=== PATIENT | female | born 1995 | race Caucasian/White ===

== ENCOUNTER → 2016-08-02 | Outpatient (REF) | payer SELFPAY ==
[2016-08-02 20:04] LABS: FERRITIN 18 NG/ML (8-252); PERCENT SATURATION 30.4 % (13.2-37.4); TOTAL IRON BINDING CAPACITY 473 UG/DL (250-450)
[2016-08-02 20:14] LABS: REASON FOR REVIEW COMPREHENSIVE REVIEW
[2016-08-05 00:08] LABS: SJOGREN'S ANTI SS-A >8.0 AI (0.0-0.9); SJOGREN'S ANTI SS-B 0.5 AI (0.0-0.9)
== END ==
LOC: M LAB REF 17:33
PROVIDERS: ATTEND Internal Medicine Medical Oncology
DX: D61.818 Other pancytopenia (principal)

== ENCOUNTER 2016-08-14 11:20 | Emergency (ER) | payer SELFPAY ==
[~2016-08-14] VITALS: Ht 160 cm; Wt 53.4 kg
[2016-08-14] MEDS ORDERED: IRON65TA PO (11:30)
[2016-08-14] MEDS ORDERED: NS 1,000 ML IV ONE (12:00)
[2016-08-14 12:33] LABS: ALBUMIN/GLOBULIN RATIO 0.87 (1.00-1.93); ALKALINE PHOSPHATASE 58 U/L (45-117); ALT/SGPT 37 U/L (12-78); ANION GAP 8 MEQ/L (8-16); AST/SGOT 29 U/L (15-37); BILIRUBIN,DIRECT 0.2 MG/DL (0.0-0.2); BLOOD UREA NITROGEN 16 MG/DL (7-18); CALCIUM LEVEL 8.9 MG/DL (8.5-10.1); CARBON DIOXIDE LEVEL 26 MEQ/L (21-32); CHLORIDE LEVEL 105 MEQ/L (98-107); CREATININE FOR GFR 0.88 MG/DL (0.55-1.02); GLOMERULAR FILTRATION RATE > 60.0 (>60); GLUCOSE, FASTING 81 MG/DL (70-105); POTASSIUM SERUM 3.6 MEQ/L (3.5-5.1); SODIUM LEVEL 139 MEQ/L (136-145); TOTAL PROTEIN 8.6 GM/DL (6.4-8.2)
[2016-08-14] MEDS ORDERED: ISOVUE-370 76% 100ML VIAL (Q9967) As Ordered ONE (12:39)
[2016-08-14 12:57] LABS: BASO % 0.2 % (0.0-1.0); EOS # 0.1 K/mm3 (0.0-0.50); EOS % 1.5 % (0.0-3.0); LARGE UNSTAINED CELL # 0.2 K/mm3 (0.0-0.4); LARGE UNSTAINED CELL % 3.1 % (0.0-4.0); LYMPH # 1.6 K/mm3 (1.5-6.5); LYMPH % 28.6 % (24.0-44.0); MEAN CORPUSCULAR HEMOGLOBIN 24.3 pg (27.0-33.0); MEAN CORPUSCULAR HGB CONC 31.2 g/dl (32.0-36.5); MEAN CORPUSCULAR VOLUME 77.9 fl (80.0-96.0); MONO # 0.2 K/mm3 (0.0-0.8); MONO % 3.2 % (0.0-5.0); NEUTROPHILS # 3.2 K/mm3 (1.8-7.7); NEUTROPHILS % 63.4 % (36.0-66.0); RED CELL DISTRIBUTION WIDTH 26.3 % (11.5-14.5); WHITE BLOOD COUNT 5.1 K/mm3 (4.0-10.0)
[2016-08-14 13:09] LABS: ADD MORPHOLOGY? YES
[2016-08-14 13:14] LABS: PLATELET COUNT, AUTOMATED 31 k/mm3 (150-450)
[2016-08-14 13:16] LABS: ANISOCYTOSIS 3+; HYPOCHROMASIA 2+; MICROCYTOSIS 2+; OVALOCYTES 2+
[2016-08-14 13:17] LABS: SCHISTOCYTES 1+
--- NOTE | 2016-08-14 14:03 | REP ---
CT ANGIOGRAM OF THE CHEST: 08/14/2016 CLINICAL HISTORY: Hemoptysis. Evaluate for pulmonary emboli. TECHNIQUE: Bolus of 75 mL of Isovue 370 with scanning through the chest using our pulmonary angiogram protocol with both coronal and sagittal thick slab MIP reformats. Bone windows are also reviewed. FINDINGS: The lung park show fairly extensive bilateral lower lobe patchy alveolar interstitial infiltrates, some with air bronchograms. There is also some inferior lingular segment and patchy right middle lobe interstitial infiltrates. I do not see pleural effusion. Mid and upper lung zones show no parenchymal lesion or atelectasis/infiltrate. No effusion, calcified pleural plaque. No thorax or pneumomediastinum. The heart is not enlarged. There is no pericardial thickening or effusion. The aorta is without aneurysm or dissection. The main, right and left pulmonary arteries in the mediastinum are intact and without filling defects. Lobar arteries bilaterally are also intact. Segmental arteries show opacification without filling defect or vessel cutoff. Visible subsegmental arteries are also without filling defect or vessel cutoff. I see no pleural effusion. There is no supraclavicular mass identified. However, there are multiple bilateral nodes in the axilla up to 13 mm diameter on the right and left side. No mediastinal or hilar adenopathy. The upper abdomen showed that the upper poles of kidneys, adrenal glands, visible portion of spleen and liver included were all unremarkable. Visualized portion of pancreas intact. Gallbladder not visualized in the field of view. The sternum, manubrium, medial clavicles, humeral heads, scapula, ribs and the spine are all grossly intact. IMPRESSION: 1. Bilateral patchy and confluent alveolar and interstitial infiltrates in the bilateral lower lobes and minimally in the inferior lingular segment right middle lobe. This could be an infectious or inflammatory, parenchymal hemorrhages could also give this appearance. There is bilateral axillary adenopathy without mediastinal adenopathy. Axillary nodes are up to 13 mm in short axis. No definite supraclavicular adenopathy. 2. There is no CT evidence for pulmonary thromboembolism, aortic aneurysm or dissection nor any pathologic sized mediastinal/hilar adenopathy. Upper abdomen grossly intact. Signed by Miquel Guzmán MD 08/14/2016 08:00 P
[2016-08-14 16:22] VITALS: BP 104/69
== END 2016-08-14 16:28 | disposition home or self-care (01) ==
LOC: M ED 13:30
DX: D59.9 Acquired hemolytic anemia, unspecified (principal); R06.02 Shortness of breath; R04.2 Hemoptysis; Z79.52 Long term (current) use of systemic steroids; Z79.899 Other long term (current) drug therapy
CPT/HCPCS: 71275; 80048; 80076; 85025; 96360; 96361; 99284; Q9967

== ENCOUNTER 2016-08-19 17:49 | Inpatient (IN) | payer SELFPAY ==
[~2016-08-19] VITALS: Ht 160 cm; Wt 52.6 kg
[~2016-08-19 17:49] MED LIST: IRON65TA PO
[2016-08-19 19:50] LABS: INR 1.07
[2016-08-19 19:53] LABS: DIFF SLIDE NUMBER 275; MEAN CORPUSCULAR HEMOGLOBIN 24.2 pg (27.0-33.0); MEAN CORPUSCULAR HGB CONC 30.9 g/dl (32.0-36.5); MEAN CORPUSCULAR VOLUME 78.5 fl (80.0-96.0); RED CELL DISTRIBUTION WIDTH 25.4 % (11.5-14.5); RETICULOCYTE ABSOLUTE ADVIA212 183 x10(9)/L (17-77); WHITE BLOOD COUNT 6.2 K/mm3 (4.0-10.0)
[2016-08-19 20:04] LABS: ANION GAP 6 MEQ/L (8-16); BLOOD UREA NITROGEN 17 MG/DL (7-18); CALCIUM LEVEL 8.6 MG/DL (8.5-10.1); CARBON DIOXIDE LEVEL 24 MEQ/L (21-32); CHLORIDE LEVEL 107 MEQ/L (98-107); CREATININE FOR GFR 0.85 MG/DL (0.55-1.02); GLOMERULAR FILTRATION RATE > 60.0 (>60); GLUCOSE, FASTING 92 MG/DL (70-105); POTASSIUM SERUM 3.6 MEQ/L (3.5-5.1); SODIUM LEVEL 137 MEQ/L (136-145)
[2016-08-19 20:24] LABS: ADD MORPHOLOGY? YES; NEUTROPHILS % 58.8 % (36.0-66.0); PLATELET COUNT, AUTOMATED 42 k/mm3 (150-450)
[2016-08-19 20:25] LABS: BASO % 0.3 % (0.0-1.0); EOS # 0.1 K/mm3 (0.0-0.50); EOS % 1.8 % (0.0-3.0); LARGE UNSTAINED CELL # 0.2 K/mm3 (0.0-0.4); LARGE UNSTAINED CELL % 2.9 % (0.0-4.0); LYMPH # 2.1 K/mm3 (1.5-6.5); LYMPH % 33.5 % (24.0-44.0); MONO # 0.2 K/mm3 (0.0-0.8); MONO % 2.7 % (0.0-5.0); NEUTROPHILS # 3.6 K/mm3 (1.8-7.7)
[2016-08-19 20:27] LABS: ANISOCYTOSIS 2+; HYPOCHROMASIA 1+; MICROCYTOSIS 2+; OVALOCYTES 2+; POIKILOCYTOSIS 2+; POLYCHROMASIA 1+; SCHISTOCYTES 2+
[2016-08-19 20:28] LABS: HELMET CELLS 1+; HOWELL-JOLLY BODIES 1+
[2016-08-19] MEDS ORDERED: FERR1TAB8 PO (21:00)
[2016-08-19 23:10] VITALS: BP 109/71
--- NOTE | 2016-08-19 23:48 | HPEPDOC ---
General Date of Admission Aug 19, 2016 at 21:55 Chief Complaint The patient is a 21-year-old female admitted with a reason for visit of Hemolytic Anemia;Hemoptysis. Source: Patient Exam Limitations: No limitations Severity: Moderate History of Present Illness Ms. Saenz is a pleasant 21 y/o female with no past medical history who presents today with CC of coughing up blood, the pt states that this morning at 4:30 am she woke up and began coughing up blood, she stated she had 4 episodes of this and came to the ED, last episode of hemoptysis per pt was 8 pm in our hospital ED. The pt was seen in our ER on 08/14/16 for similar complaint and transferred to [facility] when it was found she had parenchymal hemorrhage and was thrombocytopenic. 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 Interestingly, our serology shows positive findings for SS-A, anti-DS DNA and JACOB. The pt states that last year she gave in Mar. and in July she began having heavy menstrual cycles which she thought was a result giving a few months prior; she typically since that time has been saturating upwards of 15-20 pads a day when she is on her cycle and she also has intermittent spotting between cycles. The pt states that in Mar of this year she noticed "red spots"- (petechiae)- on both of her feet and a couple months later started having daily nose bleeds. The pt denies bleeding gums but admits to easier generalized body bruising for the past few months. When asked she also admits to having "lumps" in her neck and armpits and groin region of which she was told at [facility] were lymph nodes. The pt underwent BM bx. at [facility] but as of today at 4 pm the results were not in. She has seen Dr. Gu of Hem/Onc. last week and has a f/u appt with him in the next few days. Records from [facility] were requested and subsequently reviewed and are available in the pts chart and it appears they were thinking ITP or a myeloproliferate d/o. Currently the pt states that she is not experiencing any vaginal bleeding and states that aside from the recent 4 episodes of hemoptysis she is not SOB. She has no other complaints. Home Medications Scheduled Ferrous Sulfate (Ferrous Sulfate) 325 Mg Tab, 325 MG PO TID, (Reported) Allergies Coded Allergies: No Known Allergies (Unverified , 08/14/16) Past Medical History Medical History thrombocytopenia Family History large family hx of cancer, including mother who had colon cancer and uterine cancer, aunt had low platelet count for >20 yrs but pt states "they didn't do anything for it". 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 Dyspnea, Edema, Lt Headedness Gastrointestinal: Denies: Nausea, Vomiting, Abdominal Pain, Diarrhea, Constipation Genitourinary: Denies: Dysuria, Frequency Hematologic: Reports: Bruising Neurological: Denies: Weakness Psych: Reports: Mood Normal Physical Examination General Exam: Positive: Alert, Cooperative, No Acute Distress Eye Exam: Positive: PERRLA, Conjunctiva & lids normal, EOMI, Negative: Sclera icteric, Ptosis ENT Exam: Positive: Atraumatic, Mucous membr. moist/pink, Nares Patent, Negative: Pharyngeal Edema Neck Exam: Positive: Supple, Negative: thyromegaly Chest Exam: Positive: Clear to auscultation, Normal air movement, Negative: Rales, Rhonchi, Wheezing, Diminished Heart Exam: Positive: Rate Normal, Normal S1, Normal S2 Telemetry: Positive: No significant arrhythmia Abdomen Exam: Positive: Normal bowel sounds, Soft, Tenderness, Negative: Hepatospenomegaly, Mass Extremity Exam: Negative: Clubbing, Cyanosis, Edema Psych Exam: Positive: Mental status NL Vital Signs Vital Signs Date Time Temp Pulse Resp B/P (MAP) Pulse Ox O2 Delivery O2 Flow Rate FiO2 08/19/16 23:10 99.0 85 16 109/71 (84) 98 Room Air Laboratory Data Labs 24H Laboratory Tests 2 08/19/16 19:33: White Blood Count 6.2, Red Blood Count 3.77L, Hemoglobin 9.1L, Hematocrit 29.6L , Mean Corpuscular Volume 78.5L, Mean Corpuscular Hemoglobin 24.2L, Mean Corpuscular Hemoglobin Concent 30.9L, Red Cell Distribution Width 25.4H, Platelet Count 42L, Neutrophils (%) (Auto) 58.8, Lymphocytes (%) (Auto) 33.5, Monocytes (%) (Auto) 2.7, Eosinophils (%) (Auto) 1.8, Basophils (%) (Auto) 0.3, Neutrophils # (Auto) 3.6, Lymphocytes # (Auto) 2.1, Monocytes # (Auto) 0.2, Eosinophils # (Auto) 0.1, Basophils # (Auto) 0.0, Large Unclassified Cells % 2.9 , Large Unclassified Cells # 0.2, Platelet Estimate MARKED DECREASE, Polychromasia 1+, Hypochromasia 1+, Poikilocytosis 2+, Basophilic Stippling 1+, Anisocytosis 2+, Microcytosis 2+, Ovalocytes 2+, Helmet Cells 1+, Hester-[place] Bodies 1+, Schistocytes 2+, Absolute Reticulocyte Count 183H, Percent Reticulocyte Count 4.80H, Reticulocyte Hgb Content (CHr) 30.0, Prothrombin Time 14.0, Prothromb Time International Ratio 1.07, Activated Partial Thromboplast Time 27.8, Anion Gap 6L, Glomerular Filtration Rate > 60.0, Blood Urea Nitrogen 17, Creatinine 0.85, Sodium Level 137, Potassium Level 3.6, Chloride Level 107, Carbon Dioxide Level 24, Calcium Level 8.6, Lactate Dehydrogenase 199 CBC/BMP Laboratory Tests 08/19/16 19:33 Red Blood Count 3.77 L, Mean Corpuscular Volume 78.5 L, Mean Corpuscular Hemoglobin 24.2 L, Mean Corpuscular Hemoglobin Concent 30.9 L, Red Cell Distribution Width 25.4 H, Neutrophils (%) (Auto) 58.8, Lymphocytes (%) (Auto) 33.5, Monocytes (%) (Auto) 2.7, Eosinophils (%) (Auto) 1.8, Basophils (%) (Auto ) 0.3, Neutrophils # (Auto) 3.6, Lymphocytes # (Auto) 2.1, Monocytes # (Auto) 0.2, Eosinophils # (Auto) 0.1, Basophils # (Auto) 0.0, Calcium Level 8.6 Problems (1) Hemoptysis Status: Acute Response to Treatment: Stable Problem Text: Dr. Gu was consulted by [employer] architect hospitalist, will see pt in AM. H/H 9.1/29.6 essentially unchanged from 08-14-16, plt 42. LDH neg-do not think this is hemolytic-haptoglobin on [facility] paperwork minimally depressed at 24. p. smear- absolute retic. and percent retic. 183 and 4.80 respectively Iron studies 08-02-16 outpt showed normal iron with elevation of TIBC, transferrin and ferritin normal- do not suspect iron deficiency, pt has however been maintained on iron for a few weeks Liver studies normal, HIV neg. Pt. remains stable with plt count 42-will not transfuse platelets at this time. She has not had an episode of hemoptysis since around 8 pm in the hospital & states that she feels good with no SOB. Records from [facility] were reviewed, appears ITP vs myeloproliferative d/o so far but there are still numerous immunological and serological tests and bone marrow biopsy that are still pending. Our serology here shows findings that could suggest Lupus- positive DS-DNA, SS-A and JACOB. CXR pending will repeat basic blood work in AM pt tolerating PO intake (2) DVT prophylaxis Status: Acute Response to Treatment: Stable Problem Text: SCD TEDS Plan / VTE VTE Prophylaxis Ordered?: Yes GME ATTESTATION GME ATTESTATION My preceptor for this patient encounter was physically present in the building during the encounter and was fully available. As needed, all aspects of the patient interview, examination, medical decision making process, and medical care plan development were reviewed and approved by the preceptor. Preceptor is aware and concurs with the plan as stated in the body of this note and will attest to such by his/her cosignature. ALEKSANDER MATAMOROS DO Aug 19, 2016 23:48
[2016-08-20 04:08] VITALS: BP 93/60
[2016-08-20 05:46] LABS: BASO % 0.2 % (0.0-1.0); EOS # 0.1 K/mm3 (0.0-0.50); EOS % 3.2 % (0.0-3.0); LARGE UNSTAINED CELL # 0.2 K/mm3 (0.0-0.4); LARGE UNSTAINED CELL % 3.6 % (0.0-4.0); LYMPH # 1.4 K/mm3 (1.5-6.5); LYMPH % 28.3 % (24.0-44.0); MEAN CORPUSCULAR HEMOGLOBIN 24.7 pg (27.0-33.0); MEAN CORPUSCULAR HGB CONC 31.3 g/dl (32.0-36.5); MEAN CORPUSCULAR VOLUME 79.1 fl (80.0-96.0); MONO # 0.1 K/mm3 (0.0-0.8); MONO % 3.2 % (0.0-5.0); NEUTROPHILS # 2.8 K/mm3 (1.8-7.7); NEUTROPHILS % 61.5 % (36.0-66.0); RED CELL DISTRIBUTION WIDTH 25.3 % (11.5-14.5); WHITE BLOOD COUNT 4.5 K/mm3 (4.0-10.0)
[2016-08-20 05:47] LABS: PLATELET COUNT, AUTOMATED 32 k/mm3 (150-450)
[2016-08-20 05:48] LABS: ADD MORPHOLOGY? YES
[2016-08-20 07:09] LABS: ANION GAP 8 MEQ/L (8-16); BLOOD UREA NITROGEN 18 MG/DL (7-18); CALCIUM LEVEL 8.6 MG/DL (8.5-10.1); CARBON DIOXIDE LEVEL 24 MEQ/L (21-32); CHLORIDE LEVEL 109 MEQ/L (98-107); CREATININE FOR GFR 0.77 MG/DL (0.55-1.02); GLOMERULAR FILTRATION RATE > 60.0 (>60); GLUCOSE, FASTING 84 MG/DL (70-105); POTASSIUM SERUM 3.6 MEQ/L (3.5-5.1); SODIUM LEVEL 141 MEQ/L (136-145)
[2016-08-20 07:10] VITALS: BP 92/60
[2016-08-20 07:10] LABS: HOWELL-JOLLY BODIES 1+
[2016-08-20 07:11] LABS: ANISOCYTOSIS 2+; HYPOCHROMASIA 1+; MICROCYTOSIS 2+; OVALOCYTES 1+
[2016-08-20 07:12] LABS: POIKILOCYTOSIS 1+; TEAR DROP CELLS 1+
[2016-08-20] MEDS: FERROUS SULFATE 325MG TAB PO SCH ×3 (08:13→20:59)
--- NOTE | 2016-08-20 08:25 | REP ---
Clinical: Hemoptysis . Comparison: None . Findings: The mediastinum and cardiac silhouette are stable and within normal limits for portable technique. The lung park are clear without acute consolidation, effusion, or pneumothorax. Skeletal structures are intact. Impression: No acute cardiopulmonary process appreciated. Signed by Tae Kennedy MD 08/20/2016 08:17 A
[2016-08-20 11:30] VITALS: BP 95/63
[2016-08-20 11:51] LABS: MEAN CORPUSCULAR HEMOGLOBIN 24.7 pg (27.0-33.0); MEAN CORPUSCULAR HGB CONC 31.3 g/dl (32.0-36.5); RED CELL DISTRIBUTION WIDTH 25.3 % (11.5-14.5); WHITE BLOOD COUNT 4.8 K/mm3 (4.0-10.0)
[2016-08-20] MEDS ORDERED: DEXA4TA PO (12:44)
--- NOTE | 2016-08-20 14:59 | CR ---
DATE OF CONSULTATION: 08/20/2016 REFERRING PHYSICIAN: Ole Haro MD REASON FOR CONSULTATION: Cytopenias with marked microcytic anemia and thrombocytopenia and lymphadenopathy. HISTORY OF PRESENT ILLNESS: Otilia Saenz is a 21-year-old female who initially was seen for cytopenia, including thrombocytopenia with platelet counts of 35, 000 and microcytic anemia. Her initial workup included peripheral smear, which was done on 08/03/2016 revealing microcytic anemia with dacryocytes. She was noted to have scant hemoptysis and she was transferred to [facility] for further evaluation. At [facility], she underwent extensive workup including a bone marrow biopsy on 08/14/2016, which revealed normocellular to mildly hypercellular marrow with increased megakaryocytes and reticulin fibrosis 1 out of 3, suspicious for early myeloproliferative/myelofibrosis, but also possibly autoimmune or otherwise reactive. No evidence of lymphoma, but decreased CD4/ CD8 ratio concerning for immune abnormality. Cytogenics revealed 46, XX. Prior flow cytometry also was normal. JAK2 V617 mutation was negative. LDH was normal at 197. CT scan of the neck noted diffuse lymphadenopathy extending from the skull base to the supraclavicular regions, the largest being the right jugulodigastric node measuring 2.[address] scan of the abdomen and pelvis noted bilateral external iliac lymph nodes measuring up to 1 cm and subcentimeter prominent retroperitoneal and bilateral inguinal lymph nodes. The spleen was normal in size. A workup for connective tissue disease was also pursued revealing a positive JACOB speckled pattern with positive anti SSA and anti SSB. Sed rate was high at 44. DIC was ruled out with normal fibrinogen. D-Dimer was normal at 0.41. Biopsy of the prominent lymph nodes was not pursued while she was [facility]. This was supposed to be arranged as an outpatient. Unfortunately she had another repeat episode of hemoptysis and was readmitted to the hospital yesterday on 08/19/2016. Hematology/oncology was consulted for further evaluation. At her bedside, she denies any nausea or vomiting. She denies any fevers, night sweats or weight loss. She endorses fatigue. No other bleeding. No hematuria. No epistaxis. PAST MEDICAL HISTORY: Unremarkable. PAST SURGICAL HISTORY: None. She is 1, para 1. SOCIAL HISTORY: No tobacco or alcohol use. She is . 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 FAMILY HISTORY: Mother had colon cancer and uterine cancer. PHYSICAL EXAMINATION: VITAL SIGNS: Temperature 96.9, blood pressure is 96/63, heart rate is 75. HEENT: No pallor. Anicteric sclerae. Moist mucous membranes. Oropharynx is clear. HEART: Regular rate and rhythm. Normal S1 and S2. LUNGS: Clear bilaterally. ABDOMEN: Soft. No hepatosplenomegaly or masses. EXTREMITIES: No edema. LYMPHATICS: Prominent bilateral cervical lymphadenopathy with a 3 cm lymph node on the right cervical region. Also prominent lymphadenopathy in bilateral inguinal nodes, more prominent in the right inguinal lymph nodes. Bilateral axillary lymphadenopathy as well. Labs and studies as detailed above. A CBC from today notes a platelet count of 32,000, hemoglobin of 8.3. DISCUSSION/PLAN: 21-year-old female with multiple lymphadenopathy, thrombocytopenia, microcytic anemia. Workup has excluded essentially a microangiopathic hemolytic process; however, given her lymphadenopathy there is always concern for connective tissue disease versus a lymphoma. I could be an underlying ITP with any of these two diagnoses. Connective tissue disease in itself can also be associated with cytopenias. At this time, it is unclear what the exact diagnosis is, however, obtaining an excisional biopsy of one of the lymph nodes will help in further characterizing her pathology. Given that steroids could alter her lymphoma diagnosis, I have opted not to start her steroids. Rather I recommend that she be transfused platelets to keep her platelet count above 50,000 given the fact that she did have hemoptysis. Next step would be to arrange for excisional biopsy of the lymph nodes and based on the diagnosis, further treatment and workup will be pursued. This was discussed with the patient today at the bedside and she expresses understanding. I also expressed to her that if she continues to have hemoptysis by the weekend she needs to return to the emergency department for further evaluation and stabilization. DON
--- NOTE | 2016-08-20 15:54 | IPNPDOC ---
Subjective Date Seen The patient was seen on 08/20/16. Subjective Chief Complaint/HPI The patient is a 21-year-old female admitted with a reason for visit of Hemolytic Anemia;Hemoptysis. General: Denies: Chills, Night Sweats Constitutional: Denies: Chills, Fever Eyes: Denies: Pain, Vision change ENT: Denies: Head Aches, Ear Pain Skin: Denies: Rash, Lesions Pulmonary: Denies: Dyspnea Cardiovascular: Denies: Chest Pain, Palpitations, Orthopnea Gastrointestinal: Denies: Nausea, Vomiting, Abdominal Pain Genitourinary: Denies: Dysuria, Frequency Hematologic: Reports: Bruising, Bleeding Excessively (hemoptysis) Objective Physical Examination General Exam: Positive: Alert, Cooperative, No Acute Distress Eye Exam: Negative: Sclera icteric, Ptosis ENT Exam: Positive: Atraumatic, Mucous membr. moist/pink, Nares Patent, Negative: Pharyngeal Edema Neck Exam: Negative: JVD, thyromegaly Chest Exam: Positive: Clear to auscultation, Normal air movement, Negative: Rales, Rhonchi, Wheezing, Diminished Heart Exam: Positive: Rate Normal, Normal S1, Normal S2 Telemetry: Positive: No significant arrhythmia Abdomen Exam: Positive: Normal bowel sounds, Soft, Tenderness, Negative: Hepatospenomegaly, Mass Extremity Exam: Negative: Clubbing, Cyanosis, Edema Neuro Exam: Positive: Strength at 5/5 X4 ext Psych Exam: Positive: Mental status NL, Oriented x 3 Assessment /Plan Plan/VTE VTE Prophylaxis Ordered?: Yes Plan Microcytic anemia, thrombocytopenia with associated lymphadenopathy, pulmonary parenchymal hemorrhaging The patient has had an extensive work up at [facility], which i reviewed in her chart It is believed that the patient has ITP, however multiple studies are still pending at [facility], including a bone marrow biopsy done there. However, at this time there is concern for underlying connective tissue disease vs lymphoma that may be attributing to the ITP--the patient will need an excisional lymph node biopsy to establish a clear diagnosis of possible underlying lymphoma. I did discuss these findings with the patient's wet room supervisor, Dr. Gu, who will arrange for the biopsy as an outpatient. At this time we will transfuse the patient platelets to maintain a platelet count of >50,000 (Currently 32K). Will withhold starting the patient on any steroids at this time as they may alter the results of the biopsy. Will defer to Dr. Gu for outpatient administration of this once biopsy is done. The patient would also benefit from a Rheumatological evaluation as an outpatient for further evaluation of underlying connective tissue disease The patient did have an episode of less than a teaspoon amount of hemoptysis, however her hgb has remained relatively stable (8.3-9.1) We will continue to monitor the patient's Hgb and Platelet count and transfuse as indicated. Hematology input appreciated DVT Prophylaxis SCDs/TEDs VS, I&O, 24H, Fishbone Vital Signs/I&O Vital Signs Date Time Temp Pulse Resp B/P (MAP) Pulse Ox O2 Delivery O2 Flow Rate FiO2 08/20/16 11:30 96.9 75 18 95/63 (74) 99 Room Air Laboratory Data 24H LABS Laboratory Tests 2 08/19/16 19:33: White Blood Count 6.2, Red Blood Count 3.77L, Hemoglobin 9.1L, Hematocrit 29.6L , Mean Corpuscular Volume 78.5L, Mean Corpuscular Hemoglobin 24.2L, Mean Corpuscular Hemoglobin Concent 30.9L, Red Cell Distribution Width 25.4H, Platelet Count 42L, Neutrophils (%) (Auto) 58.8, Lymphocytes (%) (Auto) 33.5, Monocytes (%) (Auto) 2.7, Eosinophils (%) (Auto) 1.8, Basophils (%) (Auto) 0.3, Neutrophils # (Auto) 3.6, Lymphocytes # (Auto) 2.1, Monocytes # (Auto) 0.2, Eosinophils # (Auto) 0.1, Basophils # (Auto) 0.0, Large Unclassified Cells % 2.9 , Large Unclassified Cells # 0.2, Platelet Estimate MARKED DECREASE, Polychromasia 1+, Hypochromasia 1+, Poikilocytosis 2+, Basophilic Stippling 1+, Anisocytosis 2+, Microcytosis 2+, Ovalocytes 2+, Helmet Cells 1+, Hester-[place] Bodies 1+, Schistocytes 2+, Absolute Reticulocyte Count 183H, Percent Reticulocyte Count 4.80H, Reticulocyte Hgb Content (CHr) 30.0, Prothrombin Time 14.0, Prothromb Time International Ratio 1.07, Activated Partial Thromboplast Time 27.8, Anion Gap 6L, Glomerular Filtration Rate > 60.0, Blood Urea Nitrogen 17, Creatinine 0.85, Sodium Level 137, Potassium Level 3.6, Chloride Level 107, Carbon Dioxide Level 24, Calcium Level 8.6, Lactate Dehydrogenase 199 08/20/16 05:02: White Blood Count 4.5, Red Blood Count 3.23L, Hemoglobin 8.0L, Hematocrit 25.5L , Mean Corpuscular Volume 79.1L, Mean Corpuscular Hemoglobin 24.7L, Mean Corpuscular Hemoglobin Concent 31.3L, Red Cell Distribution Width 25.3H, Platelet Count 32#L, Neutrophils (%) (Auto) 61.5, Lymphocytes (%) (Auto) 28.3, Monocytes (%) (Auto) 3.2, Eosinophils (%) (Auto) 3.2H, Basophils (%) (Auto) 0.2 , Neutrophils # (Auto) 2.8, Lymphocytes # (Auto) 1.4L, Monocytes # (Auto) 0.1, Eosinophils # (Auto) 0.1, Basophils # (Auto) 0.0, Large Unclassified Cells % 3.6 , Large Unclassified Cells # 0.2, Platelet Estimate MARKED DECREASE, Hypochromasia 1+, Poikilocytosis 1+, Anisocytosis 2+, Microcytosis 2+, Ovalocytes 1+, Hester-[place] Bodies 1+, Anion Gap 8, Glomerular Filtration Rate > 60.0, Blood Urea Nitrogen 18, Creatinine 0.77, Sodium Level 141, Potassium Level 3.6, Chloride Level 109H, Carbon Dioxide Level 24, Calcium Level 8.6, Tear Drop Cells 1+ CBC/BMP Laboratory Tests 08/19/16 19:33 Red Blood Count 3.77 L, Mean Corpuscular Volume 78.5 L, Mean Corpuscular Hemoglobin 24.2 L, Mean Corpuscular Hemoglobin Concent 30.9 L, Red Cell Distribution Width 25.4 H, Neutrophils (%) (Auto) 58.8, Lymphocytes (%) (Auto) 33.5, Monocytes (%) (Auto) 2.7, Eosinophils (%) (Auto) 1.8, Basophils (%) (Auto ) 0.3, Neutrophils # (Auto) 3.6, Lymphocytes # (Auto) 2.1, Monocytes # (Auto) 0.2, Eosinophils # (Auto) 0.1, Basophils # (Auto) 0.0, Calcium Level 8.6 08/20/16 05:02 Red Blood Count 3.23 L, Mean Corpuscular Volume 79.1 L, Mean Corpuscular Hemoglobin 24.7 L, Mean Corpuscular Hemoglobin Concent 31.3 L, Red Cell Distribution Width 25.3 H, Neutrophils (%) (Auto) 61.5, Lymphocytes (%) (Auto) 28.3, Monocytes (%) (Auto) 3.2, Eosinophils (%) (Auto) 3.2 H, Basophils (%) ( Auto) 0.2, Neutrophils # (Auto) 2.8, Lymphocytes # (Auto) 1.4 L, Monocytes # ( Auto) 0.1, Eosinophils # (Auto) 0.1, Basophils # (Auto) 0.0, Calcium Level 8.6 08/20/16 11:25 Red Blood Count 3.37 L, Mean Corpuscular Volume 79.0 L, Mean Corpuscular Hemoglobin 24.7 L, Mean Corpuscular Hemoglobin Concent 31.3 L, Red Cell Distribution Width 25.[address] MD Aug 20, 2016 15:54
[2016-08-20 16:00] VITALS: BP 105/68
[2016-08-20 20:00] VITALS: BP 107/73
[2016-08-20 21:50] LABS: MEAN CORPUSCULAR HEMOGLOBIN 25.7 pg (27.0-33.0); MEAN CORPUSCULAR HGB CONC 32.5 g/dl (32.0-36.5); MEAN CORPUSCULAR VOLUME 78.9 fl (80.0-96.0); RED CELL DISTRIBUTION WIDTH 25.6 % (11.5-14.5); WHITE BLOOD COUNT 6.9 K/mm3 (4.0-10.0)
--- NOTE | 2016-08-21 12:05 | DS.PDOC ---
Discharge Summary General Date of Admission Aug 19, 2016 at 21:55 Date of Discharge 08/20/16 Specialist/Consultants Involve: TONJA CASTELLANOS MD Discharge Summary PROCEDURES PERFORMED DURING STAY: None. ADMITTING DIAGNOSES: 1. . Thrombocytopenia, microcytic anemia possibly 2/2 ITP DISCHARGE DIAGNOSES: 1. . Thrombocytopenia, microcytic anemia possibly 2/2 ITP COMPLICATIONS/CHIEF COMPLAINT: Hemolytic Anemia;Hemoptysis. HISTORY OF PRESENT ILLNESS: . 21-year-old female with a past medical history significant for thrombocytopenia and microcytic anemia who initially presented to the [facility] ER on 08/14 with complaints of hemoptysis and was found to have thrombocytopenia with a platelet count of 31,000. A CTA of the chest was done and revealed bilateral patchy and confluent alveolar and interstitial infiltrates suggestive of possible parenchymal hemorrhages. The patient was subsequently transferred to [facility] and underwent an extensive workup including a bone marrow biopsy on 08/14 for the aforementioned thrombocytopenia, microcytic anemia. Her blood work was notable for a positive JACOB speckled pattern with positive anti SSA and anti SSB. DIC was ruled out with normal fibrinogen. D-Dimer was normal. However, lymph node biopsy was not done. She was diagnosed with having ITP. The patient presented once again to the [facility] ER on 08/19 after being D/C'd from [facility] on 08/17 with complaints of 3 episodes of hemoptysis. She came to the ER for further evaluation and management. She was found to have a platelet count of 32K. During hospitalization, oncology was consulted and the patient was transfused a unit of platelets to get her platelet count above 50,000. The patient did not have any further episodes of bleeding or hemoptysis during her stay here. She has been advised to follow up with Oncology as an outpatient to have an excisional lymph node biopsy done to r/o underlying lymphoma. We were considering giving the patient a 4 day dose trial of dexamethasone for presumptive ITP, however oncology would first like to obtain an excisional lymph node biopsy prior to administering any immunosuppressant therapy. I have also advised the patient to follow up with Rheumatology to further investigate the aforementioned lab abnormalities for lupus. Ideally I would like to keep the patient for an additional night to monitor for any further bleeding, drop in hgb. However, the patient is eager to return home to her young children, and states that she needs to be discharged as soon as possible after her platelet transfusion. I have advised the patient to carefully monitor herself for any hemoptysis, heavy menstrual related bleeding and for any signs of anemia such as shortness of breath, chest pain, palpitations, lightheadedness/dizziness. I' ve asked the patient to follow-up with her primary care physician and oncologist within 1 week. In addition, she should return to the ER if her symptoms return, persist, or worsen. DISCHARGE MEDICATIONS: Please see below. ALLERGIES: Please see below. PHYSICAL EXAMINATION ON DISCHARGE: VITAL SIGNS: Please see below. General Exam: Positive: Alert, Cooperative, No Acute Distress Eye Exam: Negative: Sclera icteric, Ptosis ENT Exam: Positive: Atraumatic, Mucous membr. moist/pink, Nares Patent, Negative: Pharyngeal Edema Neck Exam: Negative: JVD, thyromegaly Chest Exam: Positive: Clear to auscultation, Normal air movement, Negative: Rales, Rhonchi, Wheezing, Diminished Heart Exam: Positive: Rate Normal, Normal S1, Normal S2 Telemetry: Positive: No significant arrhythmia Abdomen Exam: Positive: Normal bowel sounds, Soft, Tenderness, Negative: Hepatospenomegaly, Mass Extremity Exam: Negative: Clubbing, Cyanosis, Edema Neuro Exam: Positive: Strength at 5/5 X4 ext Psych Exam: Positive: Mental status NL, Oriented x 3 LABORATORY DATA: Please see below. IMAGING: Clinical: Hemoptysis . Comparison: None . Findings: The mediastinum and cardiac silhouette are stable and within normal limits for portable technique. The lung park are clear without acute consolidation, effusion, or pneumothorax. Skeletal structures are intact. Impression: No acute cardiopulmonary process appreciated. PROGNOSIS: Medically stable ACTIVITY: As tolerated. DIET: . Regular DISCHARGE PLAN: DISPOSITION: 01 Home, Self-Care. DISCHARGE INSTRUCTIONS: 1. . Follow-up with primary care physician within one week 2. . Follow-up with oncology within one week 3. . Return to ER if symptoms were to persist or worsen DISCHARGE CONDITION: Stable. TIME SPENT ON DISCHARGE: Greater than 30 minutes. Vital Signs/I&Os Vital Signs Date Time Temp Pulse Resp B/P (MAP) Pulse Ox O2 Delivery O2 Flow Rate FiO2 08/20/16 20:00 98.4 85 18 107/73 (84) 99 Room Air I&O- Last 24 Hours up to 6 AM 08/21/16 06:00 Intake Total 840 ml Balance 840 ml Laboratory Data Labs 24H Laboratory Tests 2 08/20/16 21:35: Ferritin 57 08/21/16 11:03: Lab Scanned Report Transfusion Record CBC/BMP Laboratory Tests 08/20/16 21:35 Red Blood Count 2.99 L, Mean Corpuscular Volume 78.9 L, Mean Corpuscular Hemoglobin 25.7 L, Mean Corpuscular Hemoglobin Concent 32.5, Red Cell Distribution Width 25.6 H Discharge Medications Scheduled Ferrous Sulfate (Ferrous Sulfate) 325 Mg Tab, 325 MG PO TID, (Reported) Allergies Coded Allergies: No Known Allergies (Unverified , 08/14/16) GALILEO WAY MD Aug 21, 2016 12:05
== END 2016-08-20 23:00 | disposition home or self-care (01) | DRG 661 ==
LOC: M ED 17:49 → M ED INP 21:55 → M PCU 22:58
PROVIDERS: ADMIT Hospitalist; ATTEND Internal Medicine
PROC: 30233R1 Transfusion of Nonautologous Platelets into Peripheral Vein, Percutaneous Approach (ICD-10-PCS; principal; 2016-08-20)
DX: D69.3 Immune thrombocytopenic purpura (principal); R04.2 Hemoptysis; D50.9 Iron deficiency anemia, unspecified; R59.1 Generalized enlarged lymph nodes; Z79.899 Other long term (current) drug therapy; Z80.0 Family history of malignant neoplasm of digestive organs; Z80.49 Family history of malignant neoplasm of other genital organs; Z83.2 Family history of diseases of the blood and blood-forming organs and certain disorders involving the immune mechanism

== ENCOUNTER 2016-08-25 10:18 | Inpatient (IN) | payer SELFPAY ==
[~2016-08-25] VITALS: Ht 160 cm; Wt 55.8 kg
[~2016-08-25 10:18] MED LIST changes: +DEXA4TA PO; +FERR1TAB8 PO
[2016-08-25 11:26] LABS: BASO % 0.4 % (0.0-1.0); EOS # 0.2 K/mm3 (0.0-0.50); EOS % 2.9 % (0.0-3.0); LARGE UNSTAINED CELL # 0.2 K/mm3 (0.0-0.4); LARGE UNSTAINED CELL % 3.2 % (0.0-4.0); LYMPH # 2.6 K/mm3 (1.5-6.5); LYMPH % 32.8 % (24.0-44.0); MEAN CORPUSCULAR HEMOGLOBIN 25.4 pg (27.0-33.0); MEAN CORPUSCULAR HGB CONC 30.6 g/dl (32.0-36.5); MONO # 0.2 K/mm3 (0.0-0.8); MONO % 2.7 % (0.0-5.0); NEUTROPHILS # 4.2 K/mm3 (1.8-7.7); NEUTROPHILS % 58.1 % (36.0-66.0); RED CELL DISTRIBUTION WIDTH 26.5 % (11.5-14.5); WHITE BLOOD COUNT 7.3 K/mm3 (4.0-10.0)
[2016-08-25 11:28] LABS: ADD MORPHOLOGY? YES
[2016-08-25 11:32] LABS: INR 1.16
[2016-08-25 11:33] LABS: PLATELET COUNT, AUTOMATED 26 k/mm3 (150-450)
[2016-08-25 11:38] LABS: CONTROL LINE HCG INT CTR LINE PRESENT
[2016-08-25 11:46] LABS: ANION GAP 10 MEQ/L (8-16); BLOOD UREA NITROGEN 15 MG/DL (7-18); CALCIUM LEVEL 8.5 MG/DL (8.5-10.1); CARBON DIOXIDE LEVEL 23 MEQ/L (21-32); CHLORIDE LEVEL 107 MEQ/L (98-107); CREATININE FOR GFR 0.92 MG/DL (0.55-1.02); GLOMERULAR FILTRATION RATE > 60.0 (>60); GLUCOSE, FASTING 79 MG/DL (70-105); POTASSIUM SERUM 3.6 MEQ/L (3.5-5.1); SODIUM LEVEL 140 MEQ/L (136-145)
--- NOTE | 2016-08-25 11:58 | REP ---
Clinical: Hemoptysis . Comparison: 08/19/2016 . Technique: PA and lateral. Findings: The mediastinum and cardiac silhouette are normal. The lung park are clear and without acute consolidation, effusion, or pneumothorax. The skeletal structures are intact and normal. Impression: 1. No acute cardiopulmonary process. Signed by Tae Kennedy MD 08/25/2016 11:49 A
[2016-08-25 12:04] LABS: ANISOCYTOSIS 2+; HYPOCHROMASIA 1+; OVALOCYTES 1+; POIKILOCYTOSIS 2+
[2016-08-25 12:05] LABS: MICROCYTOSIS 2+
[2016-08-25] MEDS ORDERED: IPRATROPIUM 0.5MG/ALBUTEROL 2.5MG INH SOL UD 3ML (DUONEB)(J7620) NEB PRN (13:30)
[2016-08-25] MEDS ORDERED: ONDANSETRON 4MG/2ML VIAL (J2405) IV PRN (13:30)
[2016-08-25] MEDS: IPRATROPIUM 0.5MG/ALBUTEROL 2.5MG INH SOL UD 3ML (DUONEB)(J7620) NEB SCH ×2 (14:00→20:05)
--- NOTE | 2016-08-25 15:06 | HPE ---
DATE OF ADMISSION: 08/25/2016 CHIEF COMPLAINT: 21-year-old female coming in complaining of hemoptysis. HISTORY OF PRESENT ILLNESS: This is a pleasant 21-year-old female who presents complaining of hemoptysis that started earlier today. The patient stated that she felt a sudden onset of hemoptysis described as three episodes of dime sized hemoptysis plus two times pea-sized hemoptysis and one pin sized hemoptysis that occurred earlier today. The patient normally has a feeling of "nose plugging" that she usually expels, but unfortunately today she developed hemoptysis. Therefore, came to the emergency room for further evaluation as she has a history of thrombocytopenia and anemia that is due to unknown origin. The patient was recently hospitalized due to a similar problem in July of this year. Based on the discharge note, it seems that the patient had significant thrombocytopenia and microcytic anemia and complained of hemoptysis, noted to have severe low platelet and anemia, was evaluated by Dr. Gu at that time and did receive a platelet transfusion and red blood cell transfusion. Patient has been compliant with following up with Dr. Gu as an outpatient. It seems that the patient has an extensive history of having similar symptoms earlier that month as well where she was subsequently transferred to [facility] and underwent an extensive workup including a bone marrow biopsy and was noted for having positive JACOB speckled pattern with positive JACOB SSA and anti-SSB. DIC was ruled out with normal fibrinogen. Based on the note, it seems that the patient may have been diagnosed with idiopathic thrombocytopenic purpura (ITP). There was also a mention of possible excisional lymph node biopsy in addition dexamethasone therapy for presumptive ITP prior to her discharge. The patient did relatively well up until this point when she developed another episode of hemoptysis today. The patient mentioned that she is currently having her menses, day number 5, and it is improving and is shank rander than usual. She was evaluated in the emergency room but was noted to have thrombocytopenia and anemia, therefore is being admitted for further evaluation and treatment. Dr. Yu, the ER physician, did speak to Dr. Gu who recommended admission and transfusion of platelets and red blood cells. The patient is being admitted for further evaluation and treatment. At this time, the patient denies having any shortness of breath, chest pain, dizziness, active hemoptysis. The patient did have an episode of low grade fever of 100.8 earlier today, but afebrile currently. She mentions that in July she did have symptoms of nose clotting and congestion of her chest, which she does not feel today. She has avoided NSAID and aspirin, and does not utilize any alcohol. REVIEW OF SYSTEMS: 10 point review of systems is negative other than those described in the history of present illness. PAST MEDICAL HISTORY: Significant for: Thrombocytopenia. Anemia. Questionable ITP at diagnosis. PAST SURGICAL HISTORY: History of colonoscopy. Altair tooth removal. SOCIAL HISTORY: Patient denies smoking, drinking or drug abuse. FAMILY HISTORY: Significant for cancer, including mother who has colon cancer and uterine cancer. Aunt had low platelet count for 20 years, but "nothing was done." ALLERGIES: No known drug allergies. HOME MEDICATIONS: - ferrous sulfate 325 by mouth three times a day PHYSICAL EXAMINATION: VITAL SIGNS: Temperature 98.4, heart rate of 85, respiratory rate of 18, blood pressure is 107/73, saturating 99% on room air. HEENT: Normocephalic. No trauma noted. Examination of the eyes, nose and throat within normal limits. Pupils equal, round and reactive to light and accommodation. Mucous is moist. NECK: Supple. No tracheal deviation. CARDIAC: S1 and S2, regular rate and rhythm. Pulses present. LUNGS: Equal air entry. Did not hear any wheezes, rales or rhonchi. ABDOMEN: Soft, nontender. Bowel sounds present. LOWER EXTREMITIES: No significant pitting edema. Capillary refill present all four extremities. SKIN: Intact. Warm to touch, afebrile. Patient is currently awake, alert and oriented times three. Cranial nerves grossly intact. Motor and sensory is intact. Normal mood and affect for current situation. No actively having any hemoptysis or shortness of breath. DIAGNOSTIC DATA: Patient had a WBC that was within normal. Hemoglobin and hematocrit is 6.2 and 20.4, platelet count of 26. On August 20, patient had an hemoglobin and hematocrit of 7.7 and 23.6, and platelet count of 54. Today, her basic metabolic profile is within normal. test is negative. Coagulation studies INR is within normal, PT is 15.5. Patient had a chest x-ray which showed no acute cardiopulmonary process. ASSESSMENT/PLAN: This is a pleasant 21-year-old female with significant past medical history of thrombocytopenia and anemia, with questionable diagnosis of ITP. Significant workup at [facility], has a presumptive diagnosis of ITP followed by Dr. Gu as an outpatient who is presenting complaining of hemoptysis that started earlier today. 1. Hemoptysis with comorbidities of thrombocytopenia/anemia with questionable diagnosis of ITP. Dr. Larios, the oncologist/reproduction order processor, recommended admission and transfusion of platelets and red blood cells. These have been ordered by the ER. The patient is status post 1 unit of platelets and pending 2 more units of red blood cells. I did try to contact Dr. Gu personally, I am just waiting for a call back regarding this case and need for 2 units of red blood cell transfusion versus one. In the interim, will continue the order that was given by the ER physician and await a call back from the specialist. Utilize respiratory treatment and oxygen as necessary, but at this time, the patient seems to be saturating well on room air with negative chest x-ray finding. I will continue to monitor. No active hemoptysis at this time. Will resume ferrous sulfate. Patient to continue to avoid NSAIDs and alcohol consumption. 2. Sequential compression devices (SCD) for deep vein thrombosis (DVT) prophylaxis. Addendum: Spoke to Dr. Larios, recommend platelet and 2 units RBC transfusions. Patient will need either inpatient or outpatient lymph node biopsy. He had seen patient this week, no need for official consult but will gladly speak to on- coming hospitalist. DON
[2016-08-25 15:30] VITALS: BP 119/71
[2016-08-25] MEDS: FERROUS SULFATE 325MG TAB PO SCH ×2 (17:02→20:27)
[2016-08-25 20:20] VITALS: BP 105/68
[2016-08-26] MEDS: IPRATROPIUM 0.5MG/ALBUTEROL 2.5MG INH SOL UD 3ML (DUONEB)(J7620) NEB SCH ×4 (00:28→20:01)
[2016-08-26 06:00] VITALS: BP 92/52
[2016-08-26 06:17] LABS: MEAN CORPUSCULAR HEMOGLOBIN 28.2 pg (27.0-33.0); MEAN CORPUSCULAR HGB CONC 34.3 g/dl (32.0-36.5); MEAN CORPUSCULAR VOLUME 82.2 fl (80.0-96.0); RED CELL DISTRIBUTION WIDTH 22.9 % (11.5-14.5); WHITE BLOOD COUNT 6.6 K/mm3 (4.0-10.0)
[2016-08-26 06:29] LABS: ANION GAP 8 MEQ/L (8-16); BLOOD UREA NITROGEN 11 MG/DL (7-18); CALCIUM LEVEL 8.2 MG/DL (8.5-10.1); CARBON DIOXIDE LEVEL 25 MEQ/L (21-32); CHLORIDE LEVEL 109 MEQ/L (98-107); CREATININE FOR GFR 0.83 MG/DL (0.55-1.02); GLOMERULAR FILTRATION RATE > 60.0 (>60); GLUCOSE, FASTING 90 MG/DL (70-105); POTASSIUM SERUM 3.8 MEQ/L (3.5-5.1); SODIUM LEVEL 142 MEQ/L (136-145)
[2016-08-26] MEDS: FERROUS SULFATE 325MG TAB PO SCH ×3 (08:52→20:46)
[2016-08-26 12:50] VITALS: BP 100/63
--- NOTE | 2016-08-26 13:10 | IPNPDOC ---
Text Note Date of Service The patient was seen on 08/26/16. NOTE Subjective: Patient is a 21 year old female with a PMHx of Thrombocytopenia, Anemia and possible history of ITP (in the process of being workup up by Dr. Gu) who presented to the ER with complaints of hemoptysis for 1 day. She described it as clots from her nose and when she coughs. Recent admission in July at [facility] for similar presentation. She was noted to have a positive JACOB, speckled pattern, positive SSA and SSB antibodies. The diagnosis of ITP was held, pending lymph node biopsy to rule out lymphoma. Patient was seen and examined at the bedside. She reports that she still continues to cough up clots. Denies any chest pain, shortness of breath, or palpitations. Objective: Vitals (See below) General: Lying in bed, no acute distress, comfortable, AAOx3 HEENT: NC, AT CVS: RRR, +S1S2 Lungs: Fair air entry b/l, -w/r/r Abdomen: Soft, ND, NT, +BSx4 Extremities: +PPx4, - Edema, - Calf tenderness Assessment and plan: 1. 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 Gu; will transfuse 1 unit platelet now; if no elevation, will transfuse 2 more - If platelet count responds appropriately will get LN biopsy; if no elevation, will start dexamethasone for possible ITP 2. Acute blood loss anemia - likely 2/2 hemoptysis - Hg on presentation was 6.2 - s/p 2 units PRBC - Hg responded appropriately - Will follow repeat CBC at 12PM 3. DVT prophylaxis - c/w SCDs VS,Fishbone, I+O VS, Fishbone, I+O Laboratory Tests 08/26/16 05:50 Red Blood Count 3.17 L, Mean Corpuscular Volume 82.2, Mean Corpuscular Hemoglobin 28.2, Mean Corpuscular Hemoglobin Concent 34.3, Red Cell Distribution Width 22.9 H, Calcium Level 8.2 L Vital Signs Date Time Temp Pulse Resp B/P (MAP) Pulse Ox O2 Delivery O2 Flow Rate FiO2 08/26/16 12:00 Room Air 08/26/16 06:00 99.5 91 16 92/52 (25) 94 I&O- Last 24 Hours up to 6 AM 08/26/16 06:00 Intake Total 2510 ml Output Total 1400 ml Balance 1110 ml GRISELDA SANTANA MD Aug 26, 2016 13:09
[2016-08-26 13:29] LABS: BASO % 0.3 % (0.0-1.0); EOS # 0.1 K/mm3 (0.0-0.50); LARGE UNSTAINED CELL # 0.2 K/mm3 (0.0-0.4); LARGE UNSTAINED CELL % 3.2 % (0.0-4.0); LYMPH # 1.9 K/mm3 (1.5-6.5); MEAN CORPUSCULAR HEMOGLOBIN 28.8 pg (27.0-33.0); MEAN CORPUSCULAR HGB CONC 34.3 g/dl (32.0-36.5); MEAN CORPUSCULAR VOLUME 83.8 fl (80.0-96.0); MONO # 0.2 K/mm3 (0.0-0.8); MONO % 3.3 % (0.0-5.0); NEUTROPHILS # 4.7 K/mm3 (1.8-7.7); NEUTROPHILS % 66.2 % (36.0-66.0); RED CELL DISTRIBUTION WIDTH 22.7 % (11.5-14.5); WHITE BLOOD COUNT 7.1 K/mm3 (4.0-10.0)
[2016-08-26 13:34] LABS: PLATELET COUNT, AUTOMATED 24 k/mm3 (150-450)
[2016-08-26 14:00] VITALS: BP 102/62
[2016-08-26 22:00] VITALS: BP 116/69
[2016-08-27] MEDS: IPRATROPIUM 0.5MG/ALBUTEROL 2.5MG INH SOL UD 3ML (DUONEB)(J7620) NEB SCH ×4 (01:55→19:53)
[2016-08-27] MEDS: ACETAMINOPHEN TAB 650MG DOSE (2X325MG) PO PRN (04:47)
[2016-08-27 06:00] VITALS: BP 119/71
[2016-08-27 06:50] LABS: MEAN CORPUSCULAR HEMOGLOBIN 28.2 pg (27.0-33.0); MEAN CORPUSCULAR HGB CONC 33.3 g/dl (32.0-36.5); MEAN CORPUSCULAR VOLUME 84.6 fl (80.0-96.0); RED CELL DISTRIBUTION WIDTH 23.3 % (11.5-14.5); WHITE BLOOD COUNT 8.5 K/mm3 (4.0-10.0)
[2016-08-27 07:01] LABS: ANION GAP 11 MEQ/L (8-16); BLOOD UREA NITROGEN 9 MG/DL (7-18); CALCIUM LEVEL 9.3 MG/DL (8.5-10.1); CARBON DIOXIDE LEVEL 21 MEQ/L (21-32); CHLORIDE LEVEL 109 MEQ/L (98-107); CREATININE FOR GFR 0.94 MG/DL (0.55-1.02); GLOMERULAR FILTRATION RATE > 60.0 (>60); GLUCOSE, FASTING 162 MG/DL (70-105); POTASSIUM SERUM 3.7 MEQ/L (3.5-5.1); SODIUM LEVEL 141 MEQ/L (136-145)
--- NOTE | 2016-08-27 07:29 | ECGEPIP ---
Stationary ECG Study [facility] Test Date: 2016-08-27 Pat Name: JAVED YOUNGBLOOD Department: Room: [place] [address] Gender: F Rn Coronary Care Unit: RONNIE : 1995 Requested By: ALEKSANDER MATAMOROS Order Number: [id number] Reading MD: Dayanara Nunez Measurements Intervals [place] Rate: 79 P: 28 WA: 120 QRS: -6 QRSD: 92 T: -5 QT: 390 QTc: 450 Interpretive Statements SINUS RHYTHM NORMAL Electronically Signed On 08-27-2016 7:28:43 EDT by Dayanara Nunez
[2016-08-27] MEDS: FERROUS SULFATE 325MG TAB PO SCH ×3 (09:00→21:09)
--- NOTE | 2016-08-27 11:02 | IPNPDOC ---
Text Note Date of Service The patient was seen on 08/27/16. NOTE Subjective: Patient is a 21 year old female with a PMHx of Thrombocytopenia, Anemia and possible history of ITP (in the process of being workup up by Dr. Gu) who presented to the ER with complaints of hemoptysis for 1 day. She described it as clots from her nose and when she coughs. Recent admission in July at [facility] for similar presentation. She was noted to have a positive JACOB, speckled pattern, positive SSA and SSB antibodies. The diagnosis of ITP was held, pending lymph node biopsy to rule out lymphoma. Patient was seen and examined at the bedside. She notes that she has a cough and has minimal clot production. She did note that she had some chest pain this morning that has resolved. Objective: Vitals (See below) General: Lying in bed, no acute distress, comfortable, AAOx3 HEENT: NC, AT CVS: RRR, +S1S2 Lungs: Fair air entry b/l, -w/r/r Abdomen: Soft, ND, NT, +BSx4 Extremities: +PPx4, - Edema, - Calf tenderness Assessment and plan: 1. 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 Gu, on consult - c/w Decadron 40mg PO (Day 2 of 4) - Initial plan was for LN biopsy; discussed with Below about FNA for initial diagnosis, Excisional biopsy would have been preferred - Will likely discharge home after platelet counts improves >50 2. Acute blood loss anemia - likely 2/2 hemoptysis - Hg on presentation was 6.2 - s/p 2 units PRBC - Hg responded appropriately 3. DVT prophylaxis - c/w SCDs VS,Fishbone, I+O VS, Fishbone, I+O Laboratory Tests 08/26/16 12:39 Red Blood Count 3.17 L, Mean Corpuscular Volume 83.8, Mean Corpuscular Hemoglobin 28.8, Mean Corpuscular Hemoglobin Concent 34.3, Red Cell Distribution Width 22.7 H, Neutrophils (%) (Auto) 66.2 H, Lymphocytes (%) (Auto ) 26.0, Monocytes (%) (Auto) 3.3, Eosinophils (%) (Auto) 1.0, Basophils (%) ( Auto) 0.3, Neutrophils # (Auto) 4.7, Lymphocytes # (Auto) 1.9, Monocytes # (Auto ) 0.2, Eosinophils # (Auto) 0.1, Basophils # (Auto) 0.0 08/27/16 06:29 Red Blood Count 3.35 L, Mean Corpuscular Volume 84.6, Mean Corpuscular Hemoglobin 28.2, Mean Corpuscular Hemoglobin Concent 33.3, Red Cell Distribution Width 23.3 H, Calcium Level 9.3, Total Creatine Kinase 19 L Vital Signs Date Time Temp Pulse Resp B/P (MAP) Pulse Ox O2 Delivery O2 Flow Rate FiO2 08/27/16 06:00 97.6 97 17 119/71 (87) 97 Room Air I&O- Last 24 Hours up to 6 AM 08/27/16 06:00 Intake Total 2160 ml Output Total 3350 ml Balance -1190 ml GRISELDA SANTANA MD Aug 27, 2016 11:02
[2016-08-27 14:00] VITALS: BP 113/57
[2016-08-27 22:00] VITALS: BP 122/65
--- NOTE | 2016-08-28 00:28 | CR ---
DATE OF CONSULTATION: 08/27/2016 REASON FOR CONSULTATION: Normocytic anemia, thrombocytopenia in the setting of systemic lupus erythematosus as a presumed diagnosis. HISTORY OF PRESENT ILLNESS: Otilia Saenz is a 21-year-old female who was seen in the hospital one week ago after presenting with scant hemoptysis. She had an extensive workup at [facility] and also at [facility] including bone marrow biopsy with diagnosis pointing towards autoimmune etiology. She had a positive JACOB speckled pattern, positive anti-SSA and anti-SSB. Sedimentation rate was elevated, normal D-dimer. Bone marrow biopsy showed normocellular to mildly hypocellular marrow with increased megakaryocytes and reticulin fibrosis 1 out of 3, suspicious for early myeloproliferative/myelofibrosis but also possibly autoimmune or otherwise reactive. There was no evidence of lymphoma or leukemia. Cytogenics was normal. While she was home, one day prior to admission, she had scant hemoptysis times three and she decided to present to the hospital again. On admission, she was noted to have a platelet count of 24,000. She was transfused 2 bags of platelets with no response. She was also anemic with hemoglobin 6. She was given 2 units of packed red cells and hemoglobin improved to 8.4. Hematology/Oncology was consulted in managing this patient. PAST MEDICAL HISTORY: Unremarkable except as above. PAST SURGICAL HISTORY: None. G1, P1. SOCIAL HISTORY: No tobacco or alcohol use. She is . 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 FAMILY HISTORY: Mother had colon cancer and uterine cancer. PHYSICAL EXAMINATION: VITAL SIGNS: Pulse is 97, blood pressure is 119/71, temperature is 97.6. HEENT: No pallor, anicteric sclerae. Moist mucous membranes. Oropharynx is clear. HEART: Regular rate and rhythm. Normal S1, S2. LUNGS: Clear bilaterally. No wheezes, rhonchi, or rales. ABDOMEN: Soft, nontender and nondistended. No hepatosplenomegaly. No masses. EXTREMITIES: No edema. SKIN: No petechiae or rash. LABORATORY STUDIES: As stated above. IMPRESSION: 1. 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 She is yet to be seen by a cloth carrier. PLAN: Recommend Decadron 40 mg for 4 days. I suspect that her platelet counts will improve. Once her platelet counts are above 50,000, will also recommend biopsy of one of her superficial lymph nodes. She will revisit as an outpatient in the clinic after discharge once she is stable.
[2016-08-28] MEDS: IPRATROPIUM 0.5MG/ALBUTEROL 2.5MG INH SOL UD 3ML (DUONEB)(J7620) NEB SCH ×2 (02:00→07:25)
[2016-08-28 06:00] VITALS: BP 100/56
[2016-08-28 06:07] LABS: MEAN CORPUSCULAR HEMOGLOBIN 28.2 pg (27.0-33.0); MEAN CORPUSCULAR HGB CONC 32.4 g/dl (32.0-36.5); RED CELL DISTRIBUTION WIDTH 24.3 % (11.5-14.5); WHITE BLOOD COUNT 23.8 K/mm3 (4.0-10.0)
[2016-08-28 06:19] LABS: ANION GAP 8 MEQ/L (8-16); BLOOD UREA NITROGEN 17 MG/DL (7-18); CALCIUM LEVEL 8.6 MG/DL (8.5-10.1); CARBON DIOXIDE LEVEL 22 MEQ/L (21-32); CHLORIDE LEVEL 109 MEQ/L (98-107); CREATININE FOR GFR 0.73 MG/DL (0.55-1.02); GLOMERULAR FILTRATION RATE > 60.0 (>60); GLUCOSE, FASTING 126 MG/DL (70-105); SODIUM LEVEL 139 MEQ/L (136-145)
[2016-08-28 06:49] LABS: BILIRUBIN,DIRECT 0.3 MG/DL (0.0-0.2); BILIRUBIN,TOTAL 1.3 MG/DL (0.2-1.0)
[2016-08-28] MEDS: FERROUS SULFATE 325MG TAB PO SCH ×3 (09:12→20:31)
--- NOTE | 2016-08-28 11:32 | IPNPDOC ---
Text Note Date of Service The patient was seen on 08/28/16. NOTE Subjective: Patient is a 21 year old female with a PMHx of Thrombocytopenia, Anemia and possible history of ITP (in the process of being workup up by Dr. Gu) who presented to the ER with complaints of hemoptysis for 1 day. She described it as clots from her nose and when she coughs. Recent admission in July at [facility] for similar presentation. She was noted to have a positive JACOB, speckled pattern, positive SSA and SSB antibodies. The diagnosis of ITP was held, pending lymph node biopsy to rule out lymphoma. Patient was seen and examined at the bedside. She has not had any clot production since night, she does report a persistent cough. Denies any chest pain. I have discussed with her that Surgery would come to evaluate her for a possible LN biopsy. Objective: Vitals (See below) General: Lying in bed, no acute distress, comfortable, AAOx3 HEENT: NC, AT CVS: RRR, +S1S2 Lungs: Fair air entry b/l, -w/r/r Abdomen: Soft, ND, NT, +BSx4 Extremities: +PPx4, - Edema, - Calf tenderness Assessment and plan: 1. 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 Gu on consultation; appreciate his input - Discussed with Dr. Dorsey; will evaluate for possible LN biopsy 2. Acute blood loss anemia - likely 2/2 hemoptysis - Hg on presentation was 6.2 - s/p 2 units PRBC - Hg responded appropriately; stable currently 3. DVT prophylaxis - c/w SCDs VS,Fishbone, I+O VS, Fishbone, I+O Laboratory Tests 08/28/16 05:40 Red Blood Count 3.09 L, Mean Corpuscular Volume 87.0, Mean Corpuscular Hemoglobin 28.2, Mean Corpuscular Hemoglobin Concent 32.4, Red Cell Distribution Width 24.3 H, Calcium Level 8.6 Vital Signs Date Time Temp Pulse Resp B/P (MAP) Pulse Ox O2 Delivery O2 Flow Rate FiO2 08/28/16 06:00 97.6 75 17 100/56 (71) 97 Room Air I&O- Last 24 Hours up to 6 AM 08/28/16 05:59 Intake Total 2040 ml Output Total 2075 ml Balance -35 ml GRISELDA SANTANA MD Aug 28, 2016 11:32
--- NOTE | 2016-08-28 13:44 | IPN ---
DATE: 08/28/2016 SUBJECTIVE: Otilia Saenz is a 21-year-old female with autoimmune disease, likely systemic lupus erythematosus complicated by thrombocytopenia, possibly idiopathic thrombocytopenic purpura (ITP), and anemia, autoimmune related. She was admitted for scant hemoptysis and subsequently transfused 2 units of platelets with no improvement in her thrombocytopenia. She received 1 unit of packed red cells with improvement and a subsequent until after that. Due to poor response to transfusions, she was started empirically for Decadron 40 mg daily for 4 days, and there has been notable improvement in her counts now. Platelet count is now up to 48,000 from 24,000. She denies bleeding. No hemoptysis. No shortness of breath, chest pain, or palpitations. OBJECTIVE: VITAL SIGNS: Temperature 97.6, blood pressure 100/56, pulse oximetry is 97 on room air, pulse is 75. GENERAL: Well-developed, well-appearing female in no acute distress. HEENT: No pallor or icterus. Anicteric sclerae. Moist mucous membranes. Oropharynx is clear. HEART: Regular rate and rhythm. Normal S1, S2. LUNGS: Clear bilaterally. No wheezes, rhonchi, or rales. ABDOMEN: Soft, nontender, nondistended. No hepatosplenomegaly or masses. EXTREMITIES: No edema. SKIN: No rashes. No petechiae. IMPRESSION AND RECOMMENDATIONS: A 21-year-old female with thrombocytopenia and anemia related to autoimmune disease who has undergone extensive workup and will be referred to rheumatology at [facility]. At this time, regarding her thrombocytopenia, without any evidence of bleeding she is safe for discharge, depending on the decision by her primary team. I will see her as an outpatient next week, and I will recheck her counts at that time. She will continue steroids for 4 days.
[2016-08-28 14:00] VITALS: BP 104/71
[2016-08-28] MEDS ORDERED: DEXA4TA PO (14:10)
[2016-08-28 22:00] VITALS: BP 116/58
[2016-08-29 03:55] VITALS: BP 114/69
[2016-08-29 06:00] VITALS: BP 108/63
[2016-08-29 06:22] LABS: MEAN CORPUSCULAR HEMOGLOBIN 28.3 pg (27.0-33.0); MEAN CORPUSCULAR HGB CONC 32.5 g/dl (32.0-36.5); RED CELL DISTRIBUTION WIDTH 23.4 % (11.5-14.5); WHITE BLOOD COUNT 21.2 K/mm3 (4.0-10.0)
[2016-08-29 06:44] LABS: ANION GAP 9 MEQ/L (8-16); BLOOD UREA NITROGEN 21 MG/DL (7-18); CALCIUM LEVEL 8.8 MG/DL (8.5-10.1); CARBON DIOXIDE LEVEL 25 MEQ/L (21-32); CHLORIDE LEVEL 112 MEQ/L (98-107); CREATININE FOR GFR 0.67 MG/DL (0.55-1.02); GLOMERULAR FILTRATION RATE > 60.0 (>60); GLUCOSE, FASTING 107 MG/DL (70-105); POTASSIUM SERUM 4.1 MEQ/L (3.5-5.1); SODIUM LEVEL 146 MEQ/L (136-145)
[2016-08-29] MEDS: FERROUS SULFATE 325MG TAB PO SCH ×3 (08:35→20:41)
--- NOTE | 2016-08-29 12:05 | IPNPDOC ---
Text Note Date of Service The patient was seen on 08/29/16. NOTE Subjective: Patient is a 21 year old female with a PMHx of Thrombocytopenia, Anemia and possible history of ITP (in the process of being workup up by Dr. Gu) who presented to the ER with complaints of hemoptysis for 1 day. She described it as clots from her nose and when she coughs. Recent admission in July at [facility] for similar presentation. She was noted to have a positive JACOB, speckled pattern, positive SSA and SSB antibodies. The diagnosis of ITP was held, pending lymph node biopsy to rule out lymphoma. Patient was seen and examined at the bedside. She notes that she coughed this morning, with a few clots, she denied any blood. No chest pain or SOB. Objective: Vitals (See below) General: Lying in bed, no acute distress, comfortable, AAOx3 HEENT: NC, AT CVS: RRR, +S1S2 Lungs: Fair air entry b/l, -w/r/r Abdomen: Soft, ND, NT, +BSx4 Extremities: +PPx4, - Edema, - Calf tenderness Assessment and plan: 1. 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 Gu on consultation; appreciate his input - Dr. Dorsey to schedule for LN biopsy; will determine when - may follow up as outpatient once date established 2. Acute blood loss anemia - likely 2/2 hemoptysis - Hg on presentation was 6.2 - s/p 2 units PRBC - Hg responded appropriately; stable currently 3. DVT prophylaxis - c/w SCDs VS,Fishbone, I+O VS, Fishbone, I+O Laboratory Tests 08/29/16 06:01 Red Blood Count 3.28 L, Mean Corpuscular Volume 87.0, Mean Corpuscular Hemoglobin 28.3, Mean Corpuscular Hemoglobin Concent 32.5, Red Cell Distribution Width 23.4 H, Calcium Level 8.8 Vital Signs Date Time Temp Pulse Resp B/P (MAP) Pulse Ox O2 Delivery O2 Flow Rate FiO2 08/29/16 10:11 Room Air 08/29/16 06:00 97.5 64 17 108/63 (78) 95 I&O- Last 24 Hours up to 6 AM 08/29/16 05:59 Intake Total 1890 ml Output Total 1700 ml Balance 190 ml GRISELDA SANTANA MD Aug 29, 2016 12:04
[2016-08-29 14:00] VITALS: BP 113/62
[2016-08-29 16:12] LABS: BASO % 0.2 % (0.0-1.0); EOS % 0.2 % (0.0-3.0); LARGE UNSTAINED CELL # 0.2 K/mm3 (0.0-0.4); LARGE UNSTAINED CELL % 0.9 % (0.0-4.0); LYMPH # 1.7 K/mm3 (1.5-6.5); LYMPH % 9.3 % (24.0-44.0); MEAN CORPUSCULAR HEMOGLOBIN 28.1 pg (27.0-33.0); MEAN CORPUSCULAR HGB CONC 32.2 g/dl (32.0-36.5); MEAN CORPUSCULAR VOLUME 87.4 fl (80.0-96.0); MONO # 0.2 K/mm3 (0.0-0.8); MONO % 1.3 % (0.0-5.0); NEUTROPHILS # 14.6 K/mm3 (1.8-7.7); NEUTROPHILS % 88.1 % (36.0-66.0); RED CELL DISTRIBUTION WIDTH 23.2 % (11.5-14.5); WHITE BLOOD COUNT 16.6 K/mm3 (4.0-10.0)
[2016-08-29 16:13] LABS: ADD MORPHOLOGY? YES; PLATELET COUNT, AUTOMATED 49 k/mm3 (150-450)
[2016-08-29 17:30] LABS: ANISOCYTOSIS 2+; HYPOCHROMASIA 1+; OVALOCYTES 2+; POIKILOCYTOSIS 2+; POLYCHROMASIA 1+; SCHISTOCYTES 1+
[2016-08-29 22:00] VITALS: BP 104/62
[2016-08-30] VITALS (8 sets, daily range): BP systolic 90–131; BP diastolic 51–87
--- NOTE | 2016-08-30 00:18 | CR ---
DATE OF CONSULTATION: 08/28/2016 REASON FOR CONSULTATION: Low platelet count for possible lymph node biopsy. HISTORY OF PRESENT ILLNESS: The patient is a very pleasant 21-year-old woman who reports that over the last few months she has had heavier then usual menstrual periods. She had noticed some easy bruisability. She had had occasional nosebleeds. She presented at the emergency department at [facility] with hemoptysis and was referred to [facility] where she underwent an evaluation and was found to be anemic with thrombocytopenia. She apparently had a bone marrow biopsy. She has seen Dr. Gu of hematology/oncology in [place]. She was undergoing further evaluation. She presented again on 08/25/2016 to the emergency department again with some hemoptysis. She was found to have thrombocytopenia with a platelet count of 26,000 and a hematocrit of 20%. She was admitted for further treatment. She has received packed red blood cells, as well as a platelet transfusion. Her diagnosis is not at this time completely determined. She has been found to have some enlarged nodes reportedly identified on a CT scan done in [place]. She was recently started on steroids to try to increase her platelet count and I am now consulted to consider a biopsy of one of her lymph nodes to determine if this is the etiology of her thrombocytopenia. MEDICAL HISTORY: Negative other than her current hematologic issues. PAST SURGICAL HISTORY: She has had a colonoscopy and has had wisdom teeth removed. MEDICATIONS: Are as listed in the medical record. SOCIAL HISTORY: The patient is . 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 FAMILY HISTORY: Significant for colon cancer and uterine cancer in her mother. REVIEW OF SYSTEMS: The patient has no history of chronic severe headaches, seizure or stroke. She denies any cardiac or respiratory symptoms prior to the last month or so. She has no dysuria or hematuria. She has no bone or joint issues. She does report that she has had some enlarged nodes in her neck, but indicates that these have diminished in size even in the 3-4 days that she has been receiving steroids. PHYSICAL EXAMINATION: Reveals a pleasant, thin woman lying quietly on the hospital bed. Her vital signs reveal her to be afebrile with a pulse of approximately 86, respiratory rate of 16 and a blood pressure of 104/71. She is alert, oriented and cooperative. She is knowledgeable regarding her medical illness. Skin is warm and dry. Sclerae are anicteric. Mucous membranes are moist. The neck is supple. Examination reveals that on the right side of the neck in the posterior triangle she has an approximately 1 cm node palpable. There are no other discrete nodes palpable within the neck. I do not feel definite nodes in the supraclavicular area. Heart exam shows a regular rate and rhythm. The lungs are clear to auscultation. The axillae are examined and there are no definite axillary nodes palpable on either side. The abdomen is soft and nontender. There are no inguinal nodes palpable. Extremities are without edema. LABORATORY STUDIES: From the morning of the show a white count of 23,800 with a hemoglobin of 9, hematocrit of 27, and a platelet count of 48,000. A PT and INR from 08/25 are 15.0 and 1.16. Chemistry profile on the shows a sodium of 139, potassium 4.0, chloride 109, CO2 of 22, BUN of 17, creatinine 0.7 and a glucose of 126. Total bilirubin is 1.3 with a direct bilirubin of 0.3. She has labs from 08/02 that show a positive JACOB screen. Cold agglutinins were negative on 08/26. Antigens for Rowan-Solomon virus, an early antigen IgG which is positive and high and Rowan-Solomon virus capsid antigen IgG which is high and an Rowan-Solomon virus nuclear antigen antibody which is also high. Virus capsid antigen IgM antibody is normal. She had a CT scan of the chest done as an CT angiography on 08/14 when she had presented with her initial episode of hemoptysis. I reviewed these images personally looking for evidence of adenopathy. She had some patchy infiltrates in her lower lobes consistent with her history of hemoptysis. She had no pathologic sized mediastinal or hilar nodes. There were a few small nodes noted in the axilla up to 13 mm in size and some smaller nodes in the supraclavicular areas. IMPRESSION: Thrombocytopenia and anemia of unclear etiology. PLAN: The patient has been undergoing evaluation for her hematologic abnormalities. Diagnoses that are or have been considered include idiopathic thrombocytopenia, as well as thrombocytopenia related to other either infectious or malignant conditions. Because of her history of reported lymph node enlargement, I have been requested to proceed with a lymph node biopsy. The patient does report that her lymph nodes have diminished in size even in the few days that she has been on dexamethasone for her platelet count. At present, the only node that I can feel distinctly is a roughly 1 cm node in the posterior triangle on the right. This is not particularly enlarged, but is at least palpable. Her CT scan from the had not shown any hilar or mediastinal adenopathy and showed only some normal to mildly enlarged nodes in the axillae. These nodes are not palpable on exam today. I discussed with the patient the nature of a lymph node biopsy. I spoke with Dr. Walden, who advised proceeding with a lymph node biopsy to rule out possible lymphoma as an etiology. I also received a phone call from Dr. Hendrix who has been supervising the resident involved in the care of this patient and he is convinced that this is not ITP and believes that the lymph node biopsy is strongly indicated. I will try to get the patient in to the operating room (OR) schedule as soon as possible. I have some reservations about trying to perform this on the weekend, first because this is not a true emergency and second I am concerned that handling of the pathology specimen might be better accomplished during normal business hours. I will work towards getting her scheduled in the next day or two. It may be possible to discharge the patient and have her return for an outpatient biopsy. DON
[2016-08-30 06:03] LABS: MEAN CORPUSCULAR HEMOGLOBIN 28.3 pg (27.0-33.0); MEAN CORPUSCULAR HGB CONC 32.3 g/dl (32.0-36.5); MEAN CORPUSCULAR VOLUME 87.6 fl (80.0-96.0); RED CELL DISTRIBUTION WIDTH 22.8 % (11.5-14.5); WHITE BLOOD COUNT 15.2 K/mm3 (4.0-10.0)
[2016-08-30 06:17] LABS: ANION GAP 8 MEQ/L (8-16); BLOOD UREA NITROGEN 26 MG/DL (7-18); CALCIUM LEVEL 8.7 MG/DL (8.5-10.1); CARBON DIOXIDE LEVEL 24 MEQ/L (21-32); CHLORIDE LEVEL 109 MEQ/L (98-107); CREATININE FOR GFR 0.67 MG/DL (0.55-1.02); GLOMERULAR FILTRATION RATE > 60.0 (>60); GLUCOSE, FASTING 100 MG/DL (70-105); SODIUM LEVEL 141 MEQ/L (136-145)
[2016-08-30] MEDS: FERROUS SULFATE 325MG TAB PO SCH ×3 (09:00→20:52)
--- NOTE | 2016-08-30 13:23 | IPNPDOC ---
Text Note Date of Service The patient was seen on 08/30/16. NOTE Subjective: Patient is a 21 year old female with a PMHx of Thrombocytopenia, Anemia and possible history of ITP (in the process of being workup up by Dr. Gu) who presented to the ER with complaints of hemoptysis for 1 day. She described it as clots from her nose and when she coughs. Recent admission in July at [facility] for similar presentation. She was noted to have a positive JACOB, speckled pattern, positive SSA and SSB antibodies. The diagnosis of ITP was held, pending lymph node biopsy to rule out lymphoma. Patient was seen and examined at the bedside. She noted that yesterday late afternoon she was experiencing worsening cough with clot production and dark colored blood. She had resolution within 45 minutes and didn't experience any respiratory distress. Objective: Vitals (See below) General: Lying in bed, no acute distress, comfortable, AAOx3 HEENT: NC, AT CVS: RRR, +S1S2 Lungs: Fair air entry b/l, -w/r/r Abdomen: Soft, ND, NT, +BSx4 Extremities: +PPx4, - Edema, - Calf tenderness Assessment and plan: 1. 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 Gu on consultation; appreciate his input - Dr. Dorsey (Surgery) will take to OR today for LN biopsy 2. Acute blood loss anemia - likely 2/2 hemoptysis - Hg on presentation was 6.2 - s/p 2 units PRBC - Hg responded appropriately; stable currently 3. DVT prophylaxis - c/w SCDs VS,Fishbone, I+O VS, Fishbone, I+O Laboratory Tests 08/29/16 16:00 Red Blood Count 3.32 L, Mean Corpuscular Volume 87.4, Mean Corpuscular Hemoglobin 28.1, Mean Corpuscular Hemoglobin Concent 32.2, Red Cell Distribution Width 23.2 H, Neutrophils (%) (Auto) 88.1 H, Lymphocytes (%) (Auto ) 9.3 L, Monocytes (%) (Auto) 1.3, Eosinophils (%) (Auto) 0.2, Basophils (%) ( Auto) 0.2, Neutrophils # (Auto) 14.6 H, Lymphocytes # (Auto) 1.7, Monocytes # ( Auto) 0.2, Eosinophils # (Auto) 0.0, Basophils # (Auto) 0.0 08/30/16 05:43 Red Blood Count 3.36 L, Mean Corpuscular Volume 87.6, Mean Corpuscular Hemoglobin 28.3, Mean Corpuscular Hemoglobin Concent 32.3, Red Cell Distribution Width 22.8 H, Calcium Level 8.7 Vital Signs Date Time Temp Pulse Resp B/P (MAP) Pulse Ox O2 Delivery O2 Flow Rate FiO2 08/30/16 10:00 Room Air 08/30/16 06:00 97.3 67 17 100/58 (72) 99 I&O- Last 24 Hours up to 6 AM 08/30/16 06:00 Intake Total 1890 ml Output Total 1700 ml Balance 190 ml GRISELDA SANTANA MD Aug 30, 2016 13:23
[2016-08-30] MEDS ORDERED: ISOSULFAN BLUE(LYMPHAZURIN) 1% 50MG/5ML VIAL (Q9968) As Ordered ONE (14:26)
[2016-08-30] MEDS ORDERED: BUPIVACAINE/EPIN 0.25% 30 ML VIAL As Ordered ONE (14:26)
[2016-08-30] MEDS ORDERED: LIDOCAINE 1% SDV INJ 30 ML VIAL As Ordered ONE (18:26)
[2016-08-30] MEDS ORDERED: PROPOFOL 200 MG/20 ML VIAL As Ordered ONE (18:50)
[2016-08-30] MEDS ORDERED: LIDOCAINE 2% INJ 100 MG/5 ML SDV (FOR ANES.) As Ordered ONE (18:50)
[2016-08-30] MEDS ORDERED: MIDAZOLAM INJ 2 MG/2 ML VIAL (J2250) As Ordered ONE (18:50)
[2016-08-30] MEDS ORDERED: fentaNYL 100 MCG/2 ML INJECTION (J3010) As Ordered ONE (18:50)
[2016-08-30] MEDS ORDERED: LR 1,000 ML IV SCH (20:30)
[2016-08-30] MEDS ORDERED: PERCOCET 5MG/325MG TAB PO PRN (20:30)
[2016-08-30] MEDS ORDERED: ONDANSETRON 4MG/2ML VIAL (J2405) IV PRN (20:30)
[2016-08-30] MEDS ORDERED: fentaNYL 100 MCG/2 ML INJECTION (J3010) IV PRN (20:30)
[2016-08-30] MEDS ORDERED: ISOSULFAN BLUE(LYMPHAZURIN) 1% 50MG/5ML VIAL (Q9968) ONE (22:45)
[2016-08-30] MEDS ORDERED: LIDOCAINE 1% SDV INJ 30 ML VIAL ONE (22:46)
[2016-08-31] VITALS (10 sets, daily range): BP systolic 90–106; BP diastolic 51–62
[2016-08-31 07:31] LABS: MEAN CORPUSCULAR HEMOGLOBIN 28.3 pg (27.0-33.0); MEAN CORPUSCULAR HGB CONC 32.6 g/dl (32.0-36.5); MEAN CORPUSCULAR VOLUME 86.8 fl (80.0-96.0); RED CELL DISTRIBUTION WIDTH 22.3 % (11.5-14.5); WHITE BLOOD COUNT 10.9 K/mm3 (4.0-10.0)
[2016-08-31 07:39] LABS: ANION GAP 6 MEQ/L (8-16); BLOOD UREA NITROGEN 29 MG/DL (7-18); CALCIUM LEVEL 8.4 MG/DL (8.5-10.1); CARBON DIOXIDE LEVEL 27 MEQ/L (21-32); CHLORIDE LEVEL 104 MEQ/L (98-107); CREATININE FOR GFR 0.74 MG/DL (0.55-1.02); GLOMERULAR FILTRATION RATE > 60.0 (>60); GLUCOSE, FASTING 81 MG/DL (70-105); POTASSIUM SERUM 3.9 MEQ/L (3.5-5.1); SODIUM LEVEL 137 MEQ/L (136-145)
[2016-08-31] MEDS: FERROUS SULFATE 325MG TAB PO SCH ×3 (08:07→20:47)
[2016-08-31] MEDS: ACETAMINOPHEN TAB 650MG DOSE (2X325MG) PO PRN (08:08)
[2016-08-31] MEDS ORDERED: NS 1,000 ML IV SCH (08:45)
--- NOTE | 2016-08-31 08:47 | IPNPDOC ---
Text Note Date of Service The patient was seen on 08/31/16. NOTE Subjective: Patient denies any further episodes of hemoptysis in the last 24 hours Objective: Vitals: (see below) General: No acute distress, laying comfortably in bed. HEENT: Moist mucous membranes. Neck: No JVD. Right-sided lymphadenopathy biopsy site tender to palpation. No bleeding noted. No supraclavicular lymphadenopathy Cardiac: RRR, No murmurs Pulm: Clear to auscultation b/l. No wheezing, rhonchi Abd: NT/ND + BS Ext: No edema or cyanosis. No axillary lymphadenopathy. Labs (see below) Images: Chest x-ray 08/25/16 Impression: 1. No acute cardiopulmonary process. CTA chest 07/2016 IMPRESSION: 1. Bilateral patchy and confluent alveolar and interstitial infiltrates in the bilateral lower lobes and minimally in the inferior lingular segment right middle lobe. This could be an infectious or inflammatory, parenchymal hemorrhages could also give this appearance. There is bilateral axillary adenopathy without mediastinal adenopathy. Axillary nodes are up to 13 mm in short axis. No definite supraclavicular adenopathy. 2. There is no CT evidence for pulmonary thromboembolism, aortic aneurysm or dissection nor any pathologic sized mediastinal/hilar adenopathy. Upper abdomen grossly intact. CT Chest 08/31/16 IMPRESSION: Significant improvement is noted in the bilateral basilar consolidation pattern seen on August 14, 2016. Some residual ground-glass opacity persists in this distribution. Resolving pulmonary parenchymal hemorrhage could have this appearance and course. The findings are nonspecific however. Assessment/Plan 1. Hemoptysis with clots- CTA of the chest (see above). Had prior episodes on the last admission as well. Discussed with Dr. Anderson, who has viewed the CT Chest, with recommendations to repeat CT chest (see above), and continue to monitor, with no indication for bronchoscopy. Received 2 units PRBC. 2 units of platelets. Hemoglobin is stable. 2. Anemia and thrombocytopenia. Patient does have characteristics of hemolytic anemia given the low haptoglobin and elevated bilirubin. Presentation appears to be consistent with evidence syndrome with underlying lupus, as noted by Dr. Gu. No need for transfusion at this time. We'll continue to monitor. Had been given Decadron for 4 days. Discussed case with Dr. Gu who recommends prednisone 80 mg daily until he sees her in the clinic during which she will titrate this down. Patient is also been started on Protonix as well. 3. ?Lupus- patient does have positive AMA and double-stranded DNA. Will need outpatient rheumatology follow-up. 4. Lymphadenopathy- it was questionable whether patient had lymphoma. She had undergone a lymph node biopsy yesterday with Dr. Dorsey. Will need results follow-up. 5. Relative hypotension- systolic blood pressure in the 90s. We'll start normal saline IV fluids. DVT prophy: SCDs VS,Fishbone, I+O VS, Fishbone, I+O Laboratory Tests 08/31/16 07:14 Red Blood Count 3.45 L, Mean Corpuscular Volume 86.8, Mean Corpuscular Hemoglobin 28.3, Mean Corpuscular Hemoglobin Concent 32.6, Red Cell Distribution Width 22.3 H, Calcium Level 8.4 L Vital Signs Date Time Temp Pulse Resp B/P (MAP) Pulse Ox O2 Delivery O2 Flow Rate FiO2 08/31/16 06:00 97.2 68 17 99/54 (69) 96 Room Air I&O- Last 24 Hours up to 6 AM 08/31/16 06:00 Intake Total 790 ml Output Total 1505 ml Balance -715 ml WILLIE GLOVER MD Aug 31, 2016 08:47
--- NOTE | 2016-08-31 11:01 | REP ---
CT STUDY OF THE CHEST WITHOUT CONTRAST: HISTORY: Question pulmonary hemorrhage. Comparison CT study is from August 14, 2016. CT FINDINGS: The previously noted alveolar consolidation pattern noted in the lower lobes as well as the right middle lobe and lingular segment of the left upper lobe has dramatically improved in the interval since the of August 14, 2016 study. There is still significant ground-glass opacity in this distribution but it is less confluent less opaque. No new infiltrate is seen. No pulmonary mass lesion or nodule. No pleural effusion is seen. No intrathoracic adenopathy is noted. Bilateral somewhat prominent axillary lymph nodes are again noted unchanged. The visualized upper abdominal structures show no additional abnormality. IMPRESSION: Significant improvement is noted in the bilateral basilar consolidation pattern seen on August 14, 2016. Some residual ground-glass opacity persists in this distribution. Resolving pulmonary parenchymal hemorrhage could have this appearance and course. The findings are nonspecific however. Signed by Truman Arauz MD 08/31/2016 03:44 P
[2016-08-31] MEDS ORDERED: PANTOPRAZOLE 40MG TAB (PROTONIX) PO ONE (12:45)
[2016-08-31] MEDS: predniSONE 20 MG TAB PO SCH (14:05)
--- NOTE | 2016-08-31 16:40 | RO ---
DATE OF PROCEDURE: 08/30/2016 PREOPERATIVE DIAGNOSIS: Thrombocytopenia with adenopathy. POSTOPERATIVE DIAGNOSIS: Thrombocytopenia with adenopathy. PROCEDURE: Excisional biopsy of a right posterior triangle cervical lymph node. SURGEON: Dr. Jay Dorsey ANESTHESIA: Local 1% Xylocaine with monitored anesthesia care INDICATIONS FOR THE PROCEDURE: The patient is a very pleasant young woman who has developed thrombocytopenia with anemia. She had initially presented with hemoptysis. She has undergone an extensive workup to try to determine the etiology of her anemia and thrombocytopenia. She has had a bone marrow biopsy as well as multiple serologic tests. She has been found previously to have some enlarged lymph nodes in the cervical area in particular. These have diminished in size during the course of Decadron treatment but as the etiology of her thrombocytopenia remains unclear, I was asked to perform a lymph node biopsy to evaluate for possible lymphoma. DESCRIPTION OF PROCEDURE: A single small node was palpable in the posterior triangle of the neck on the right. The patient was placed supine on the operating table with her head turned to the left. She received sedation from anesthesia. The right neck was prepped and draped in a sterile fashion. After positioning and draping, it was somewhat difficult to identify the node, but it was ultimately identified. Local anesthesia was achieved over this area with 1% Xylocaine. An approximately 3 cm oblique skin incision was made. This was deepened through the subcutaneous tissues with cautery use to ensure hemostasis. The cervical fascia was opened, and the incision was deepened further. A single node was identified, and this was dissected free by circumferential dissection using a combination of sharp and blunt techniques. Several small vessels were controlled with small hemoclips. The node was removed intact. This proved to be approximately 1.4 cm x 1 cm by perhaps 3-4 mm in size. This was cut into two portions revealing some fleshy tissue. Approximately one-third of the node was placed in RPMI medium and the other two-thirds was placed in formalin. These were sent to the lab for further processing. The wound was inspected. Several tiny bleeding points were controlled with cautery. The cervical fascia was approximated with several buried sutures of #4-0 chromic. The skin edges were approximated with several buried sutures of #4-0 chromic, and the skin edges were closed with a running subcuticular suture of #5-0 Vicryl and Steri-Strips. A light dressing was applied. The patient tolerated the procedure well without apparent complication. She was awakened in the operating room and moved to the recovery room in stable condition. DON
[2016-09-01 04:00] VITALS: BP 124/58
[2016-09-01 07:21] LABS: MEAN CORPUSCULAR HEMOGLOBIN 28.7 pg (27.0-33.0); MEAN CORPUSCULAR HGB CONC 33.2 g/dl (32.0-36.5); MEAN CORPUSCULAR VOLUME 86.5 fl (80.0-96.0); RED CELL DISTRIBUTION WIDTH 21.7 % (11.5-14.5); WHITE BLOOD COUNT 10.1 K/mm3 (4.0-10.0)
[2016-09-01] MEDS ORDERED: PRED20TA PO (07:23)
[2016-09-01] MEDS ORDERED: PANT40TA2 PO (07:23)
[2016-09-01 07:34] LABS: ANION GAP 6 MEQ/L (8-16); BLOOD UREA NITROGEN 21 MG/DL (7-18); CALCIUM LEVEL 8.5 MG/DL (8.5-10.1); CARBON DIOXIDE LEVEL 23 MEQ/L (21-32); CHLORIDE LEVEL 106 MEQ/L (98-107); CREATININE FOR GFR 0.69 MG/DL (0.55-1.02); GLOMERULAR FILTRATION RATE > 60.0 (>60); GLUCOSE, FASTING 120 MG/DL (70-105); SODIUM LEVEL 135 MEQ/L (136-145)
[2016-09-01 08:00] VITALS: BP 107/56
[2016-09-01] MEDS: FERROUS SULFATE 325MG TAB PO SCH (08:27)
[2016-09-01] MEDS: predniSONE 20 MG TAB PO SCH (08:28)
[2016-09-01] MEDS ORDERED: SENOKOT S TAB PO SCH (09:00)
[2016-09-01] MEDS ORDERED: PANTOPRAZOLE 40MG TAB (PROTONIX) PO SCH (09:00)
--- NOTE | 2016-09-01 13:57 | DS.PDOC ---
Discharge Summary General Date of Admission Aug 27, 2016 at 10:14 Date of Discharge 09/01/16 Attending Physician: WILLIE GLOVER MD Specialist/Consultants Involve: TONJA CASTELLANOS MD Specialist/Consultants Involve Dr. Dorsey Discharge Summary PROCEDURES PERFORMED DURING STAY: Right Cervical Lymph Node Biopsy ADMITTING DIAGNOSES/DISCHARGE DIAGNOSES: 1. Hemoptysis 2. Anemia and thrombocytopenia. 3. ?Lupus- patient does have positive AMA and double-stranded DNA. Will need outpatient rheumatology follow-up. 4. Lymphadenopathy- s/p lymph node biopsy with Dr. Dorsey COMPLICATIONS/CHIEF COMPLAINT: Anemia Thrombocytopenia. HISTORY OF PRESENT ILLNESS/HOSPITAL COURSE: This is a 21-year-old female who has recently been and out of hospital over the past 6 weeks. Patient was noted to have anemia, thrombocytopenia, and is alveolar/interstitial infiltrates. Patient was sent to [facility] in July and had an extensive workup with no specific etiology for her symptoms. Patient did have significant lymphadenopathy which has been improving, with concern that the patient may have lymphoma. Patient presented to the ED at [facility] complaining of hemoptysis, a complaint she has been having on multiple occasions. Patient's was noted to have possible parenchymal hemorrhage as a results of her CAT scan findings with interstitial infiltrates in July 2015. 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 Her laboratory findings are notable for a positive AMA and stranded DNA. Over the course of hospitalization, the hemoptysis had significantly resolved. The patient had received a total of 2 units PRBC and 2 units of platelets. After initiation of steroids, the patient's platelets as well as hemoglobin have improved. I have also spoken with Dr. Castellanos who recommended keeping the patient 80 mg of prednisone daily and he will follow up with her in the clinic to taper this down. In regards to the patient's CT chest findings, I have spoken to Dr. Munoz who has viewed the CT chest from July [address] Chest, which notes improvement. The patient also had a cervical lymph node biopsy by Dr. Dorsey. The results are pending and the patient will need to follow-up with Dr. Castellanos for these results. She will need to keep the Steri-Strips on the biopsy site until the fall of buttock sounds per Dr. Dorsey. At this point the patient is hemodynamically stable and ready to be discharged home. She will need close outpatient follow-up. Patient will need to return to the ED if symptoms worsen. I have answered all of the patient's questions to her satisfaction. DISCHARGE MEDICATIONS: Please see below. ALLERGIES: Please see below. PHYSICAL EXAMINATION ON DISCHARGE: VITAL SIGNS: Please see below. General: No acute distress, laying comfortably in bed. HEENT: Moist mucous membranes. Neck: No JVD. Right-sided lymphadenopathy biopsy site - No bleeding noted. No supraclavicular lymphadenopathy Cardiac: RRR, No murmurs Pulm: Clear to auscultation b/l. No wheezing, rhonchi Abd: NT/ND + BS Ext: No edema or cyanosis. No axillary lymphadenopathy. LABORATORY DATA: Please see below. IMAGING: CTA chest 07/2016 IMPRESSION: 1. Bilateral patchy and confluent alveolar and interstitial infiltrates in the bilateral lower lobes and minimally in the inferior lingular segment right middle lobe. This could be an infectious or inflammatory, parenchymal hemorrhages could also give this appearance. There is bilateral axillary adenopathy without mediastinal adenopathy. Axillary nodes are up to 13 mm in short axis. No definite supraclavicular adenopathy. 2. There is no CT evidence for pulmonary thromboembolism, aortic aneurysm or dissection nor any pathologic sized mediastinal/hilar adenopathy. Upper abdomen grossly intact. CT Chest 08/31/16 IMPRESSION: Significant improvement is noted in the bilateral basilar consolidation pattern seen on August 14, 2016. Some residual ground-glass opacity persists in this distribution. Resolving pulmonary parenchymal hemorrhage could have this appearance and course. The findings are nonspecific however. PROGNOSIS: Fair ACTIVITY: As tolerated. DIET: Regular DISCHARGE PLAN/DISPOSITION: 01 Home, Self-Care. DISCHARGE INSTRUCTIONS: 1. Follow-up with PCP and Dr. Castellanos in one week. Follow-up rheumatology as scheduled. Return to the ED if symptoms worsen. DISCHARGE CONDITION: Stable. TIME SPENT ON DISCHARGE: Greater than 30 minutes. Vital Signs/I&Os Vital Signs Date Time Temp Pulse Resp B/P (MAP) Pulse Ox O2 Delivery O2 Flow Rate FiO2 09/01/16 08:00 98.6 74 18 107/56 (73) 98 Room Air I&O- Last 24 Hours up to 6 AM 09/01/16 06:00 Intake Total 1520 ml Output Total 800 ml Balance 720 ml Laboratory Data Labs 24H Laboratory Tests 2 09/01/16 06:47: Anion Gap 6L, Glomerular Filtration Rate > 60.0, Blood Urea Nitrogen 21H, Creatinine 0.69, Sodium Level 135L, Potassium Level 4.0, Chloride Level 106, Carbon Dioxide Level 23, Calcium Level 8.5 CBC/BMP Laboratory Tests 09/01/16 06:46 Red Blood Count 3.57 L, Mean Corpuscular Volume 86.5, Mean Corpuscular Hemoglobin 28.7, Mean Corpuscular Hemoglobin Concent 33.2, Red Cell Distribution Width 21.7 H 09/01/16 06:47 Calcium Level 8.5 Discharge Medications Scheduled Ferrous Sulfate (Ferrous Sulfate) 325 Mg Tab, 325 MG PO TID, (Reported) Pantoprazole Sodium (Pantoprazole Sodium) 40 Mg Tab, 40 MG PO DAILY Prednisone (Prednisone) 20 Mg Tab, 80 MG PO DAILY 80mg daily until seen by Dr. Castellanos in 1-2 weeks, who will taper this dose. Allergies Coded Allergies: No Known Allergies (Unverified , 08/14/16) WILLIE GLOVER MD Sep 01, 2016 13:57
== END 2016-09-01 11:15 | disposition home or self-care (01) | DRG 651 ==
LOC: M ED 10:18 → M ED INP 13:22 → M MSPAV 15:30 → OBSVTOIN 08-27 10:14 → M PED 08-31 22:46
PROVIDERS: ADMIT Internal Medicine; ATTEND Internal Medicine
PROC: 30233N1 Transfusion of Nonautologous Red Blood Cells into Peripheral Vein, Percutaneous Approach (ICD-10-PCS; 2016-08-25)
PROC: 30233R1 Transfusion of Nonautologous Platelets into Peripheral Vein, Percutaneous Approach (ICD-10-PCS; 2016-08-25)
PROC: 07B10ZX Excision of Right Neck Lymphatic, Open Approach, Diagnostic (ICD-10-PCS; principal; 2016-08-30 08:20)
DX: D69.6 Thrombocytopenia, unspecified (principal); D58.9 Hereditary hemolytic anemia, unspecified; R04.2 Hemoptysis; D62 Acute posthemorrhagic anemia; R59.1 Generalized enlarged lymph nodes; R91.8 Other nonspecific abnormal finding of lung field; Z79.899 Other long term (current) drug therapy; Z79.52 Long term (current) use of systemic steroids; Z80.0 Family history of malignant neoplasm of digestive organs; Z80.49 Family history of malignant neoplasm of other genital organs; Z83.2 Family history of diseases of the blood and blood-forming organs and certain disorders involving the immune mechanism

== ENCOUNTER → 2016-10-29 | Outpatient (REF) | payer SELFPAY ==
[~2016-10-29] MED LIST changes: +HYDR-3713 PO; +PANT40TA2 PO; +PRED20TA PO
[2016-11-12 09:42] LABS: HHV8 INTERPRETATION NEGATIVE
== END ==
LOC: M LAB REF 12:13
PROVIDERS: ATTEND Internal Medicine Medical Oncology
DX: D50.9 Iron deficiency anemia, unspecified (principal); D69.6 Thrombocytopenia, unspecified

== ENCOUNTER 2016-11-04 02:49 | Emergency (ER) | payer SELFPAY ==
[~2016-11-04] VITALS: Ht 160 cm; Wt 55.0 kg
[~2016-11-04 02:49] MED LIST changes: -HYDR-3713 PO
[2016-11-04] MEDS ORDERED: HYDR-3713 PO (03:00)
[2016-11-04] MEDS ORDERED: NS 1,000 ML IV ONE (03:15)
[2016-11-04 03:37] LABS: BASO % 0.5 % (0.0-1.0); EOS # 0.1 K/mm3 (0.0-0.50); EOS % 1.5 % (0.0-3.0); LARGE UNSTAINED CELL # 0.1 K/mm3 (0.0-0.4); LARGE UNSTAINED CELL % 1.3 % (0.0-4.0); LYMPH # 2.4 K/mm3 (1.5-6.5); LYMPH % 33.3 % (24.0-44.0); MEAN CORPUSCULAR HEMOGLOBIN 28.3 pg (27.0-33.0); MEAN CORPUSCULAR HGB CONC 32.1 g/dl (32.0-36.5); MEAN CORPUSCULAR VOLUME 88.1 fl (80.0-96.0); MONO # 0.5 K/mm3 (0.0-0.8); MONO % 6.6 % (0.0-5.0); NEUTROPHILS % 56.9 % (36.0-66.0); PLATELET COUNT, AUTOMATED 258 k/mm3 (150-450); RED CELL DISTRIBUTION WIDTH 15.2 % (11.5-14.5)
[2016-11-04 03:55] LABS: ANION GAP 9 MEQ/L (8-16); BLOOD UREA NITROGEN 20 MG/DL (7-18); CALCIUM LEVEL 9.3 MG/DL (8.5-10.1); CARBON DIOXIDE LEVEL 29 MEQ/L (21-32); CHLORIDE LEVEL 105 MEQ/L (98-107); CREATININE FOR GFR 0.85 MG/DL (0.55-1.02); GLOMERULAR FILTRATION RATE > 60.0 (>60); GLUCOSE, FASTING 89 MG/DL (70-105); POTASSIUM SERUM 3.7 MEQ/L (3.5-5.1); SODIUM LEVEL 143 MEQ/L (136-145)
[2016-11-04] MEDS ORDERED: METOCLOPRAMIDE INJ 10MG/2ML VIAL (J2765) IV ONE (04:30)
[2016-11-04 05:30] VITALS: BP 117/69
== END 2016-11-04 05:32 | disposition home or self-care (01) ==
LOC: M ED 02:49
DX: R51 Headache (principal)
CPT/HCPCS: 80048; 85025; 96361; 96374; 99283; J2765

== ENCOUNTER 2018-05-10 05:34 | Emergency (ER) | payer BC ==
[~2018-05-10] VITALS: Ht 160 cm; Wt 54.5 kg
[~2018-05-10 05:34] MED LIST changes: +FERR325T3 PO; +HYDR-3713 PO; -PANT40TA2 PO; +PANT40TA3 PO; +PEPC1TAB5 PO
[2018-05-10] MEDS ORDERED: predniSONE 20 MG TAB PO ONE (06:30)
[2018-05-10] MEDS ORDERED: diphenhydrAMINE 50 MG CAP PO ONE (06:30)
[2018-05-10] MEDS ORDERED: NS 1,000 ML IV ONE (06:45)
[2018-05-10 06:53] LABS: BASO % 0.1 % (0.0-1.0); EOS % 0.1 % (0.0-3.0); HEMATOCRIT 33.5 % (36.0-47.0); HEMOGLOBIN 10.8 g/dl (12.0-15.5); LYMPH # 1.1 10^3/uL (1.5-6.5); LYMPH % 16.3 % (24.0-44.0); MEAN CORPUSCULAR HEMOGLOBIN 26.2 pg (27.0-33.0); MEAN CORPUSCULAR HGB CONC 32.2 g/dl (32.0-36.5); MEAN CORPUSCULAR VOLUME 81.1 fl (80.0-96.0); MONO # 0.3 10^3/uL (0.0-0.8); MONO % 4.9 % (0.0-5.0); NEUTROPHILS # 5.5 10^3/uL (1.8-7.7); NEUTROPHILS % 78.3 % (36.0-66.0); PLATELET COUNT, AUTOMATED 181 10^3/uL (150-450); RED BLOOD COUNT 4.13 10^6/uL (4.00-5.40)
[2018-05-10 07:19] LABS: BLOOD UREA NITROGEN 10 MG/DL (7-18); CALCIUM LEVEL 8.4 MG/DL (8.5-10.1); CARBON DIOXIDE LEVEL 26 MEQ/L (21-32); CHLORIDE LEVEL 107 MEQ/L (98-107); CREATININE FOR GFR 0.83 MG/DL (0.55-1.30); GLOMERULAR FILTRATION RATE > 60.0 (>60); GLUCOSE, FASTING 97 MG/DL (70-100); POTASSIUM SERUM 3.8 MEQ/L (3.5-5.1); SODIUM LEVEL 139 MEQ/L (136-145)
[2018-05-10 07:56] VITALS: BP 102/63
[2018-05-10 08:01] LABS: INFLUENZA A AMPLIFICATION NEGATIVE (NEGATIVE); INFLUENZA B AMPLIFICATION NEGATIVE (NEGATIVE)
[2018-05-10] MEDS ORDERED: PRED20TA PO (09:03)
== END 2018-05-10 09:12 | disposition home or self-care (01) ==
LOC: M ED 05:34
DX: D50.9 Iron deficiency anemia, unspecified (principal); R21 Rash and other nonspecific skin eruption; R22.0 Localized swelling, mass and lump, head; B00.3 Herpesviral meningitis; M35.00 Sjogren syndrome, unspecified; Z79.899 Other long term (current) drug therapy

== ENCOUNTER 2018-07-29 07:45 | Emergency (ER) | payer BC ==
[~2018-07-29] VITALS: Ht 160 cm; Wt 53.6 kg
[2018-07-29] MEDS ORDERED: RITU10VLL IV (07:51)
[2018-07-29] MEDS ORDERED: ONDANSETRON 4 MG ORAL DISINTEGRATING TAB (Q0162 PER 1MG) PO ONE (08:45)
[2018-07-29] MEDS ORDERED: ZOFR8TAB24 PO (09:42)
[2018-07-29 09:51] VITALS: BP 107/63
== END 2018-07-29 09:54 | disposition home or self-care (01) ==
LOC: M ED 07:45
DX: J02.9 Acute pharyngitis, unspecified (principal); R50.9 Fever, unspecified; R51 Headache; R11.0 Nausea; R05 Cough; T50.Z15A Adverse effect of immunoglobulin, initial encounter; Z20.9 Contact with and (suspected) exposure to unspecified communicable disease; M32.9 Systemic lupus erythematosus, unspecified; Z79.899 Other long term (current) drug therapy
CPT/HCPCS: 87880; 99284; Q0162

== ENCOUNTER → 2019-12-29 | Outpatient (CLI) | payer BC ==
[~2019-12-29] MED LIST changes: +PANT40TA29 PO; -PANT40TA3 PO; +RITU10VLL IV; +ZOFR8TAB24 PO
== END ==
LOC: M LABSMTC 11:34
PROVIDERS: ATTEND Anesthesiology
DX: Z01.812 Encounter for preprocedural laboratory examination (principal); Z20.828 Contact with and (suspected) exposure to other viral communicable diseases
CPT/HCPCS: C9803; U0003

== ENCOUNTER 2020-01-03 10:10 | Day surgery (SDC) | payer BC ==
[~2020-01-03] VITALS: Ht 160 cm; Wt 53.0 kg
[~2020-01-03 10:10] MED LIST changes: +LR 1,000 ML IV ONE; +dexameTHASONE 4 MG/ML 1ML VIAL (J1100 PER 1MG) IV ONE
[2020-01-03] MEDS ORDERED: ONDANSETRON 4MG/2ML VIAL As Ordered ONE (10:22)
[2020-01-03] MEDS ORDERED: SUGAMMADEX SODIUM 500 MG/5 ML VIAL (BRIDION) As Ordered ONE (10:22)
[2020-01-03] MEDS ORDERED: LIDOCAINE 2% 100MG/5ML SDV (FOR ANES.) As Ordered ONE (10:22)
[2020-01-03] MEDS ORDERED: MIDAZOLAM INJ 2MG/2ML VIAL (J2250 PER 1MG) As Ordered ONE (10:22)
[2020-01-03] MEDS ORDERED: propofoL 200 MG/20 ML VIAL As Ordered ONE (10:22)
[2020-01-03] MEDS ORDERED: fentaNYL 100 MCG/2 ML INJECTION (J3010) As Ordered ONE (10:22)
[2020-01-03] MEDS ORDERED: dexameTHASONE 4 MG/ML 1ML VIAL (J1100 PER 1MG) As Ordered ONE (10:22)
[2020-01-03] MEDS ORDERED: ROCURONIUM BROMIDE 50 MG/5 ML VIAL As Ordered ONE (10:22)
[2020-01-03] MEDS ORDERED: KETOROLAC 60MG 2ML VIAL As Ordered ONE (10:23)
[2020-01-03] MEDS ORDERED: LIDOCAINE W/EPINEPHRINE 1% 20ML VIAL As Ordered ONE (13:10)
[2020-01-03] MEDS ORDERED: LR 1,000 ML IV SCH ×2 (14:30)
[2020-01-03] MEDS ORDERED: fentaNYL 100 MCG/2 ML INJECTION (J3010) IV PRN (14:30)
[2020-01-03] MEDS ORDERED: ONDANSETRON 4MG/2ML VIAL IV PRN (14:30)
[2020-01-03 15:15] VITALS: BP 114/72
--- NOTE | 2020-01-07 14:11 | RO ---
DATE OF OPERATION: 01/03/2020 SURGEON: Oliver Morales MD PREOPERATIVE DIAGNOSIS: Left dorsal tongue lesion. POSTOPERATIVE DIAGNOSIS: Left dorsal tongue lesion. PROCEDURE PERFORMED: Biopsy of left dorsal tongue lesion. ANESTHESIA: General. CLINICAL PREAMBLE: This 24-year-old woman with history of auto-immune disorder presented to the office with abnormal tongue lesion on the left dorsal surface. The patient felt the lesion had progressed somewhat in size over the past several months. Management options including excision biopsy of the lesion had been discussed with the patient. She understood and consented to the procedure. PROCEDURE: The patient was identified in pre-holding and brought to the operating room in stable condition. She was placed in supine position on operating table. The patient received anesthesia followed by nasotracheal intubation without incident. The patient was prepped and draped in usual fashion for the procedure. The oral cavity was retracted open using the mouth bite. The mucosa was then gently retracted using the ____ retractor. The tongue was then retracted to the right side to expose the left dorsal surface. The lesion was noted and infiltrated with 1% Lidocaine with 1:100,000 Epinephrine. Incisional biopsy was then performed; lesion measured approximately 6 mm in size. Hemostasis was achieved using bipolar electrocautery. Biopsy site was closed using mattress suture using 3-0 chromic. All sponge, instrument and needle counts were correct. No complications. Estimated blood loss less than 1 mL. General anesthesia was reversed and the patient was extubated and brought to recovery area in satisfactory condition. DON
== END 2020-01-03 15:15 | disposition home or self-care (01) ==
LOC: M SDC 10:10
PROVIDERS: ATTEND Otolaryngology
DX: K13.29 Other disturbances of oral epithelium, including tongue (principal); M32.9 Systemic lupus erythematosus, unspecified; M35.00 Sjogren syndrome, unspecified; D64.9 Anemia, unspecified; Z79.899 Other long term (current) drug therapy
CPT/HCPCS: 41112; 81025; 88305; J1100; J1885; J2250; J2405; J3010

== ENCOUNTER → 2020-01-04 | Outpatient (REF) | payer BC ==
[~2020-01-04] MED LIST changes: -LR 1,000 ML IV ONE; -dexameTHASONE 4 MG/ML 1ML VIAL (J1100 PER 1MG) IV ONE
== END ==
LOC: M LAB REF 13:52
PROVIDERS: ATTEND Otolaryngology
DX: D37.02 Neoplasm of uncertain behavior of tongue (principal)

== ENCOUNTER 2024-01-05 03:06 | Outpatient (CLI) | payer BC ==
[2024-01-05] VITALS (8 sets, daily range): BP systolic 93–112; BP diastolic 50–64
[~2024-01-05] VITALS: Ht 160 cm; Wt 58.6 kg
[2024-01-05 05:39] LABS: HEMATOCRIT 29.8 % (36.0-47.0); MEAN CORPUSCULAR HEMOGLOBIN 28.3 pg (27.0-33.0); MEAN CORPUSCULAR HGB CONC 33.6 g/dl (32.0-36.5); MEAN CORPUSCULAR VOLUME 84.4 fl (80.0-96.0); PLATELET COUNT, AUTOMATED 214 10^3/uL (150-450); RED BLOOD COUNT 3.53 10^6/uL (4.00-5.40); WHITE BLOOD COUNT 12.5 10^3/uL (4.0-10.0)
[2024-01-05 05:57] LABS: INR 0.99; PARTIAL THROMBOPLASTIN TIME 24.6 SECONDS (24.8-34.2); PROTHROMBIN TIME 13.4 SECONDS (12.5-14.5)
[2024-01-06 00:20] VITALS: BP 105/62
[2024-01-06 04:46] VITALS: BP 88/53
[2024-01-06 05:09] VITALS: BP 88/52
[2024-01-06 08:20] VITALS: BP 96/51
== END 2024-01-06 13:20 | disposition home or self-care (01) ==
LOC: M LDO 03:06
PROVIDERS: ATTEND Advanced Practice Midwife
DX: O44.02 Complete placenta previa NOS or without hemorrhage, second trimester (principal); O32.2XX9 Maternal care for transverse and oblique lie, other fetus; O99.112 Other diseases of the blood and blood-forming organs and certain disorders involving the immune mechanism complicating pregnancy, second trimester; O26.22 Pregnancy care for patient with recurrent pregnancy loss, second trimester; O26.892 Other specified pregnancy related conditions, second trimester; M32.9 Systemic lupus erythematosus, unspecified; D69.6 Thrombocytopenia, unspecified; Z3A.27 27 weeks gestation of pregnancy
CPT/HCPCS: 36415; 59025; 76811; 76820; 85027; 85384; 85460; 85610; 85730; 86850; 86900; 86901; 96372; G0463

== ENCOUNTER 2024-01-26 18:48 | Inpatient (IN) | payer OTHER ==
[2024-01-26] VITALS (7 sets, daily range): BP systolic 102–121; BP diastolic 60–73; TEMP 97.4
[~2024-01-26] VITALS: Ht 162.6 cm; Wt 60.0 kg
[2024-01-26] MEDS ORDERED: PLAQ200T4 PO (19:01)
[2024-01-26] MEDS ORDERED: PREN1CHW6 PO (19:01)
[2024-01-26] MEDS ORDERED: HOME MED LIST COMPLETE! XX SCH (19:05)
[2024-01-26] MEDS: LR 1,000 ML IV SCH ×2 (19:46→21:40)
[2024-01-26 19:48] LABS: HEMOGLOBIN 11.1 g/dl (12.0-15.5); MEAN CORPUSCULAR HEMOGLOBIN 28.1 pg (27.0-33.0); MEAN CORPUSCULAR HGB CONC 32.6 g/dl (32.0-36.5); MEAN CORPUSCULAR VOLUME 86.1 fl (80.0-96.0); PLATELET COUNT, AUTOMATED 261 10^3/uL (150-450); RED BLOOD COUNT 3.95 10^6/uL (4.00-5.40); WHITE BLOOD COUNT 8.5 10^3/uL (4.0-10.0)
[2024-01-26 20:04] LABS: INR 0.92; PARTIAL THROMBOPLASTIN TIME 27.5 SECONDS (24.8-34.2); PROTHROMBIN TIME 12.6 SECONDS (12.5-14.5)
[2024-01-26] MEDS: BETAMETHASONE SOLUSPAN 6MG/ML 5ML VIAL IM ONE (20:19)
[2024-01-26] MEDS ORDERED: METHYLERGONOVINE MALEATE 0.2MG/ML 1ML VIAL IM PRN (20:35)
[2024-01-26] MEDS ORDERED: TRANEXAMIC ACID INJection 1,000 MG in NS 100 ML IV PRN (20:35)
[2024-01-26] MEDS ORDERED: CARBOPROST TROMETHAMINE 250 MCG/ML AMP IM PRN (20:35)
[2024-01-26] MEDS: AZITHROMYCIN INJ 500 MG, VIAL MATE ADAPTER 1 EACH in NS 250 ML IV ONE (21:02)
[2024-01-26] MEDS: BICITRA 30ML SOLN UDC PO ONE (21:02)
[2024-01-26] MEDS: ceFAZolin SOD 2 GM in IV 1 EA IV ONE (21:07)
[2024-01-26] MEDS ORDERED: OXYTOCIN 30UNITS IN 0.9% NaCl 500ML IV BAG As Ordered ONE (21:20)
[2024-01-26] MEDS ORDERED: KETOROLAC 60MG 2ML VIAL As Ordered ONE (21:20)
[2024-01-26] MEDS ORDERED: ONDANSETRON 4MG 2ML VIAL As Ordered ONE (21:20)
[2024-01-26] MEDS ORDERED: ACETAMINOPHEN 1000MG/100ML IV BAG As Ordered ONE (21:20)
[2024-01-26] MEDS ORDERED: MORPHINE PRES-FREE INJ 10 MG/10 ML VIAL As Ordered ONE (21:20)
[2024-01-26] MEDS ORDERED: ePHEDrine SULFATE 25 MG/5 ML(5MG/ML) SYRINGE As Ordered ONE (21:23)
[2024-01-26] MEDS ORDERED: PHENYLephrine 500MCG 5ML (100MCG/ML) SYRINGE As Ordered ONE (21:23)
[2024-01-26 21:40] LABS: CORD GAS HCO3 V 20.1 MMOL/L; CORD GAS O2 SAT V 67.2 %; CORD GAS PH V 7.402 UNITS; CORD GAS PO2 V 25.3 mmHg; CORD GAS SBC V 20.6 MMOL/L; CORD GAS TCO2 V 21.1 MMOL/L
[2024-01-26] MEDS: OXYTOCIN DRIP 30 UNITS in IV 1 EA IV SCH (21:40)
[2024-01-26 21:43] LABS: CORD GAS ABE A -3.5; CORD GAS HCO3 A 21.4 MMOL/L; CORD GAS O2 SAT A 50.8 %; CORD GAS PCO2 A 37.8 mmHg; CORD GAS PH A 7.37 UNITS; CORD GAS PO2 A 20.4 mmHg; CORD GAS SBC A 20.7 MMOL/L; CORD GAS TCO2 A 22.5 MMOL/L
[2024-01-26] MEDS ORDERED: RHOGAM 300MCG (1500IU) INJ IM SCH (22:40)
[2024-01-26] MEDS ORDERED: ONDANSETRON 4MG 2ML VIAL IV PRN ×2 (22:40)
[2024-01-26] MEDS: SLF 3 ML SYR IV SCH (22:40)
[2024-01-26] MEDS ORDERED: MORPHINE 4 MG/ML 1ML VIAL IV PRN (22:40)
[2024-01-26] MEDS ORDERED: oxyCODONE 5MG TAB PO PRN (22:40)
[2024-01-26] MEDS ORDERED: SIMETHICONE 80MG CHEW TAB PO PRN (22:40)
[2024-01-26] MEDS ORDERED: fentaNYL 100 MCG/2 ML INJECTION IV PRN (22:40)
[2024-01-26] MEDS ORDERED: CALCIUM CARBONATE 500 MG CHEW U/D PO PRN (22:40)
[2024-01-26] MEDS ORDERED: **NOTE PATIENT COMMENT** MISC XX SCH (22:40)
[2024-01-26] MEDS ORDERED: METOCLOPRAMIDE INJ 10MG/2ML VIAL IV PRN (22:40)
[2024-01-26] MEDS ORDERED: NALOXONE INJ 0.4MG/1ML VIAL IV PRN ×2 (22:40)
[2024-01-26] MEDS ORDERED: ANUSOL HC CREAM 30GM TOP PRN (22:40)
[2024-01-27] VITALS (8 sets, daily range): BP systolic 93–109; BP diastolic 51–65; O2SAT 96–100
[2024-01-27] MEDS: KETOROLAC 30 MG/ML 1ML VIAL IV SCH (04:02)
[2024-01-27] MEDS: diphenhydrAMINE 50MG/ML VIAL IV PRN (04:02)
[2024-01-27] MEDS: FERROUS SULFATE 325MG TAB PO SCH (08:51)
[2024-01-27] MEDS: PRENATAL VITAMINS CHEWABLE TABLET PO SCH (08:51)
[2024-01-27] MEDS: DOCUSATE SODIUM 100MG CAPSULE PO SCH (08:51)
[2024-01-27] MEDS: HYDROXYCHLOROQUINE 200 MG TAB PO SCH (08:51)
[2024-01-27] MEDS: ACETAMINOPHEN 500 MG TAB PO PRN (08:52)
[2024-01-27] MEDS ORDERED: HYDROXYCHLOROQUINE 200 MG TAB PO SCH (09:00)
[2024-01-27 11:25] LABS: HEMATOCRIT 28.2 % (36.0-47.0); HEMOGLOBIN 9.3 g/dl (12.0-15.5); MEAN CORPUSCULAR HEMOGLOBIN 28.2 pg (27.0-33.0); MEAN CORPUSCULAR VOLUME 85.5 fl (80.0-96.0); PLATELET COUNT, AUTOMATED 252 10^3/uL (150-450); WHITE BLOOD COUNT 12.2 10^3/uL (4.0-10.0)
[2024-01-27] MEDS: PERCOCET 5MG/325MG TAB PO PRN ×2 (15:06→21:46)
[2024-01-28] MEDS: IBUPROFEN 800 MG TAB PO SCH (00:05)
[2024-01-28 02:14] VITALS: BP 91/55; O2SAT 99
[2024-01-28 06:43] VITALS: BP 101/59; O2SAT 98
[2024-01-28] MEDS: MEASLES,MUMPS,RUBELLA VACCINE INJ (MMR-II) SC.IMMUN ONE (08:56)
[2024-01-28 10:17] VITALS: BP 104/62; O2SAT 96
[2024-01-28] MEDS: ACETAMINOPHEN 500 MG TAB PO SCH (13:19)
[2024-01-28 14:00] VITALS: BP 109/72; O2SAT 98
[2024-01-28] MEDS: IBUPROFEN 600MG TAB PO SCH (15:08)
[2024-01-28] MEDS: MOM 30ML SUSPENSION UDC PO PRN (17:41)
[2024-01-28] MEDS: oxyCODONE 5MG TAB PO PRN (17:42)
[2024-01-28 18:00] VITALS: BP 108/65; O2SAT 97
[2024-01-28 22:00] VITALS: BP 103/64; O2SAT 97
[2024-01-29] MEDS: oxyCODONE 5MG TAB PO PRN (00:08)
[2024-01-29 02:00] VITALS: BP 95/58; O2SAT 99
[2024-01-29 06:00] VITALS: BP 97/58; O2SAT 98
[2024-01-29] MEDS ORDERED: ACET-683 PO (10:32)
[2024-01-29] MEDS ORDERED: IBUP-1022 PO (10:32)
[2024-01-29] MEDS ORDERED: OXYC-517 PO (10:32)
[2024-01-29] MEDS ORDERED: COLA100C5 PO (10:32)
[2024-01-29] MEDS ORDERED: FERR1TAB8 PO (10:32)
== END 2024-01-29 11:48 | disposition home or self-care (01) | DRG 540 ==
LOC: M LDO 18:48 → M LDI 20:38 → M OBS 01-27 00:15
PROVIDERS: ADMIT Obstetrics & Gynecology; ATTEND Obstetrics & Gynecology
PROC: 0UT70ZZ Resection of Bilateral Fallopian Tubes, Open Approach (ICD-10-PCS; 2024-01-26)
PROC: 10D00Z0 Extraction of Products of Conception, High, Open Approach (ICD-10-PCS; principal; 2024-01-26 21:00)
DX: O44.13 Complete placenta previa with hemorrhage, third trimester (principal); Z37.0 Single live birth; Z3A.30 30 weeks gestation of pregnancy; O60.14X0 Preterm labor third trimester with preterm delivery third trimester, not applicable or unspecified; Z30.2 Encounter for sterilization